=== PATIENT | female | born 1945 | race Caucasian/White ===

== ENCOUNTER 2018-11-16 10:40 | Inpatient (IN) ==
[2018-11-16] MEDS ORDERED: Isovue-370 500 ML BOTTLE IVP ONE (11:05)
[2018-11-16 12:18] LABS: INR 1.2; Prothrombin Time 13.9 Seconds (9.4-12.1)
[2018-11-16 12:22] LABS: Activated Partial Thrombo Time 19.8 Seconds (26.0-36.0)
[2018-11-16 12:28] LABS: Amylase 15 Units/L (29-103); BUN/Creatinine Ratio 15 (6-26); Blood Urea Nitrogen 8 mg/dL (8-23); Carbon Dioxide 30 mEq/L (23-29); Chloride 96 mEq/L (98-107); Glucose 187 mg/dL (70-105); Magnesium 1.7 mg/dL (1.6-2.6); Osmolality,Calculated 283 (280-300); Phosphorous 3.1 mg/dL (2.7-4.5); Potassium 3.5 mEq/L (3.5-5.1); Sodium 135 mEq/L (136-145); eGFR For Non-African Americans > 60 (> 60)
[2018-11-16] MEDS: *HR* Promethazine 25 MG/ML VIAL IVP PRN (13:18)
[2018-11-16] MEDS: 0.9 % Sodium Chloride 1,000 ML IVC SCH (13:18)
[2018-11-16] MEDS: Isovue-370 500 ML BOTTLE RC ONE ×2 (13:44→13:45)
[2018-11-16] MEDS ORDERED: *HR* Dextrose 50 % in Water (Syg) 50 ML SYRINGE IVP PRN (13:50)
[2018-11-16] MEDS ORDERED: Dextrose 4 GM Chewable Tablets PO PRN ×2 (13:50)
[2018-11-16] MEDS ORDERED: Dextrose Gel 15 GM/37.5 ML TUBE PO PRN ×2 (13:50)
[2018-11-16] MEDS ORDERED: D5% in Water 1,000 ML IVC PRN (13:50)
[2018-11-16 14:04] LABS: Basophils % 0.3 %; Eosinophils # 0.2 K/mcL (0.0-0.6); Eosinophils % 1.6 %; Hematocrit 30.1 % (35.3-44.9); Hemoglobin 9.7 g/dL (11.5-15.4); Immature Granulocytes % 0.9 % (0-4); Immature Platelets 2.4 % (1.1-6.1); Lymphocytes # 0.9 K/mcL (0.6-4.6); Lymphocytes % 9.1 %; Mean Corpuscular HGB Conc 32.2 g/dL (31.6-35.5); Mean Corpuscular Volume 89.9 fL (83.0-100.0); Mean Platelet Volume 9.2 fL (9.4-12.4); Monocytes # 0.7 K/mcL (0.0-1.3); Monocytes % 7.2 %; Neutrophils # 8.2 K/mcL (1.6-8.9); Nucleated Red Blood Cells 0.2 /100 WBC (0); Platelet Count 309 K/mcL (140-400); Red Blood Count 3.35 M/mcL (3.82-4.97); Red Cell Distribution Width 12.9 % (11.5-14.5); Segmented Neutrophils % 80.9 %
--- NOTE | 2018-11-16 14:23 | General Surg History&Physical ---
Date of Encounter: 11/16/18 Time of Encounter: 14:20 Assessment and Plan (1) Vomiting Current Visit: Yes Status: Acute The assessment and plan as outlined above was discussed with the patient and/or family members who expressed understanding and agreement. All questions were answered. Pt seen in office today. Reports nausea, vomiting, inability to keep liquids down, and fever. See hard chart for H&P. Admitted for work-up and fluids. Anticipate d/c in 24-48 hours pending clinical course and fluid resuscitation Labs IVF serial abd exam CT with iv and rectal contrast to rule out abscess or surgical complication prn antiemetic gi and dvt prophylaxis npo except ice chips Qualifiers: Vomiting type: unspecified Vomiting Intractability: intractable Nausea presence: with nausea Qualified Code(s): R11.2 - Nausea with vomiting, unspecified (2) Dehydration Current Visit: Yes Status: Acute The assessment and plan as outlined above was discussed with the patient and/or family members who expressed understanding and agreement. All questions were answered. (3) S/P partial colectomy Current Visit: No Status: Acute The assessment and plan as outlined above was discussed with the patient and/or family members who expressed understanding and agreement. All questions were answered. (4) Colovesical fistula Current Visit: No Status: Acute The assessment and plan as outlined above was discussed with the patient and/or family members who expressed understanding and agreement. All questions were answered. Rectosigmoid colectomy 11/09/2018. Per recent hospital admission, was recommended to follow-up in 2-3 weeks for voiding trial and tomlin management. Per [facility] record review, Pt of Dr. Crow. Saw Dr. Tejeda in office today d/t timing and had voiding trial. tomlin removed. will need to closely monitor I/O Check UA (5) Nausea Current Visit: No Status: Acute The assessment and plan as outlined above was discussed with the patient and/or family members who expressed understanding and agreement. All questions were answered. History of Present Illness HPI: Ms. Kim is a 73 year old female Past Med Surg Social Fam HX - Past Medical History Medical history: diabetes, hypertension Additional medical history: h/o Uterine cancer Psychiatric history: anxiety - Past Surgical History Surgical History: appendectomy, cholecystectomy, hysterectomy Additional surgical history: Rt knee surgery - Social History Smoking Status: Never smoker Smokeless Tobacco Status: No Alcohol use: rarely Drug use: none - Family History Father Living Status: Hx Family Cardiac Disorders: Yes Hx Family Cancer: Yes (colon) Medications and Allergies Aspirin 325 mg PO DAILY 11/09/18 [History] Biotin 1 mg PO DAILY 11/09/18 [History] LORazepam [Ativan] 0.5 mg PO TID PRN 11/09/18 [History] Lactobacillus Combination No.8 [Adult Probiotic] 1 tab PO DAILY 11/09/18 [History] Metformin HCl [Fortamet] 500 mg PO BID 11/09/18 [History] Multivit-Min/FA/Lycopen/Lutein [Adults 50+ Multivitamin Tablet] 1 each PO DAILY 11/09/18 [History] [place]-3/Dha/Epa/Fish Oil [[place] 3 500 Softgel] 1 each PO DAILY 11/09/18 [History] Omeprazole [PriLOSEC] 20 mg PO QAM 11/09/18 [History] Simethicone [Gas-X] 80 mg PO ACHS PRN 11/09/18 [History] Cyanocobalamin (Vitamin B-12) [Vitamin B-12] 500 mcg PO QAM 11/12/18 [History] Docusate Sodium [Colace] 100 mg PO BID PRN #30 capsule 11/12/18 [Rx] Enalapril/Hydrochlorothiazide [Enalapril-Hctz 5-12.5 mg Tab] 1 each PO QAM 11/12/18 [History] HYDROcodone/Acet 5/325 mg [[place] 5-325 mg] 1 tab PO Q8H PRN 7 Days #21 tab 11/12/18 [Rx] Ondansetron ODT [Zofran ODT] 4 mg SL Q4HR PRN #30 tab.rapdis 11/12/18 [Rx] Phenazopyridine HCl [Pyridium] 200 mg PO TIDAC PRN #42 tab 11/12/18 [Rx] Allergy/AdvReac Type Severity Reaction Status Date / Time ciprofloxacin Allergy Vomiting Verified 11/12/18 11:58 codeine Allergy Vomiting Verified 11/12/18 11:58 ibuprofen [From Motrin] Allergy Vomiting Verified 11/12/18 11:58 oxycodone [From Percocet] Allergy Vomiting Verified 11/12/18 11:58 penicillin G Allergy Redness of Verified 11/12/18 11:58 Skin Sulfa (Sulfonamide Allergy Vomiting Verified 11/12/18 11:58 Antibiotics) sulfamethoxazole Allergy Vomiting Verified 11/12/18 11:58 [From ] trimethoprim [From ] Allergy Vomiting Verified 11/12/18 11:58 misc throat products Allergy See Uncoded 11/02/18 09:09 Comments Review of Systems All systems PM: The remainder of the systems were reviewed and are negative General Surgery Exam Initial Vital Signs Temp Pulse Resp BP Pulse Ox 98.1 F 94 17 138/72 92 11/16/18 13:40 11/16/18 13:40 11/16/18 13:40 11/16/18 13:40 11/16/18 13:40 Results - Labs 11/16/18 11:25 11/16/18 11:25 Abnormal lab results RBC 3.35 M/mcL (3.82-4.97) L 11/16/18 11:25 Hgb 9.7 g/dL (11.5-15.4) L 11/16/18 11:25 Hct 30.1 % (35.3-44.9) L 11/16/18 11:25 MPV 9.2 fL (9.4-12.4) L 11/16/18 11:25 Nucleated RBCs/100 WBC 0.2 /100 WBC (0) H 11/16/18 11:25 PT 13.9 Seconds (9.4-12.1) H 11/16/18 11:25 APTT 19.8 Seconds (26.0-36.0) L 11/16/18 11:25 Sodium 135 mEq/L (136-145) L 11/16/18 11:25 Chloride 96 mEq/L (98-107) L 11/16/18 11:25 Carbon Dioxide 30 mEq/L (23-29) H 11/16/18 11:25 Creatinine 0.54 mg/dL (0.60-1.20) L 11/16/18 11:25 Glucose 187 mg/dL (70-105) H 11/16/18 11:25 Prealbumin 9.5 mg/dL (17.0-34.0) L 11/16/18 11:25 Amylase 15 Units/L (29-103) L 11/16/18 11:25 Lipase 7 Units/L (11-82) L 11/16/18 11:25 Diabetes panel 11/16/18 Range/Units 11:25 Sodium 135 L (136-145) mEq/L Potassium 3.5 (3.5-5.1) mEq/L Chloride 96 L (98-107) mEq/L Carbon Dioxide 30 H (23-29) mEq/L BUN 8 (8-23) mg/dL Creatinine 0.54 L (0.60-1.20) mg/dL Glucose 187 H (70-105) mg/dL Calcium 9.0 (8.6-10.3) mg/dL Calcium panel 11/16/18 Range/Units 11:25 Calcium 9.0 (8.6-10.3) mg/dL Phosphorus 3.1 (2.7-4.5) mg/dL Pituitary panel 11/16/18 Range/Units 11:25 Sodium 135 L (136-145) mEq/L Potassium 3.5 (3.5-5.1) mEq/L Chloride 96 L (98-107) mEq/L Carbon Dioxide 30 H (23-29) mEq/L BUN 8 (8-23) mg/dL Creatinine 0.54 L (0.60-1.20) mg/dL Glucose 187 H (70-105) mg/dL Calcium 9.0 (8.6-10.3) mg/dL Adrenal panel 11/16/18 Range/Units 11:25 Sodium 135 L (136-145) mEq/L Potassium 3.5 (3.5-5.1) mEq/L Chloride 96 L (98-107) mEq/L Carbon Dioxide 30 H (23-29) mEq/L BUN 8 (8-23) mg/dL Creatinine 0.54 L (0.60-1.20) mg/dL Glucose 187 H (70-105) mg/dL Calcium 9.0 (8.6-10.3) mg/dL All other labs normal.
[2018-11-16] MEDS: Acetaminophen IV 1,000 MG/100 ML INFUS..BTL IVPB SCH ×2 (15:48→17:24)
[2018-11-16] MEDS: Scopolamine Patch 1.5 MG PATCH.TD72 TD SCH (15:49)
[2018-11-16 16:43] LABS: Bilirubin,Urine Negative (Negative); Blood,Urine Large (Negative); Clarity,Urine Clear (Clear); Glucose,Urine (UA) Normal (Normal); Ketones,Urine 80 mg/dL (Negative); Leukocyte Esterase,Urine Moderate (Negative); Nitrite,Urine Positive (Negative); Protein,Urine 100 mg/dL (Neg-Trace); Specific Gravity,Urine > 1.030 (1.010-1.025); Urobilinogen,Urine Normal (Normal)
[2018-11-16 16:45] LABS: Bacteria,Urine Moderate per hpf (None-Few); Hyaline Casts,Urine None Seen per lpf (None-Few); Squamous Epithelial Cell,Urine Moderate per lpf (None-Few); WBC,Urine TNTC per hpf (0-3)
[2018-11-16 16:48] LABS: Color,Urine Dark Yellow (Yellow)
[2018-11-16] MEDS: Piperacillin/Tazobactam 3.375 GM in 0.9 % Sodium Chloride Mini Bag 100 ML IVPB SCH (16:53)
[2018-11-16] MEDS: Insulin LISPRO 300 UNITS/3 ML VIAL SQ SCH (18:26)
[2018-11-17] MEDS: Piperacillin/Tazobactam 3.375 GM in 0.9 % Sodium Chloride Mini Bag 100 ML IVPB SCH ×3 (00:33→16:34)
[2018-11-17] MEDS: *HR* Promethazine 25 MG/ML VIAL IVP PRN ×3 (00:34→18:55)
[2018-11-17] MEDS: Acetaminophen IV 1,000 MG/100 ML INFUS..BTL IVPB SCH ×5 (00:43→23:47)
[2018-11-17] MEDS: Insulin LISPRO 300 UNITS/3 ML VIAL SQ SCH ×4 (04:08→18:58)
[2018-11-17] MEDS: 0.9 % Sodium Chloride 1,000 ML IVC SCH ×4 (05:28→23:47)
[2018-11-17 08:29] LABS: Basophils % 0.2 %; Eosinophils # 0.1 K/mcL (0.0-0.6); Eosinophils % 0.9 %; Hematocrit 28.7 % (35.3-44.9); Hemoglobin 9.4 g/dL (11.5-15.4); Immature Granulocytes % 0.3 % (0-4); Lymphocytes # 0.6 K/mcL (0.6-4.6); Lymphocytes % 4.6 %; Mean Corpuscular HGB Conc 32.8 g/dL (31.6-35.5); Mean Corpuscular Hemoglobin 29.7 pg (28.0-33.3); Mean Corpuscular Volume 90.5 fL (83.0-100.0); Mean Platelet Volume 9.1 fL (9.4-12.4); Monocytes # 0.5 K/mcL (0.0-1.3); Monocytes % 3.9 %; Neutrophils # 11.2 K/mcL (1.6-8.9); Nucleated Red Blood Cells 0.2 /100 WBC (0); Platelet Count 227 K/mcL (140-400); Red Blood Count 3.17 M/mcL (3.82-4.97); Red Cell Distribution Width 12.9 % (11.5-14.5); Segmented Neutrophils % 90.1 %
[2018-11-17] MEDS: Pantoprazole 40 MG VIAL IVP SCH (08:45)
[2018-11-17 08:48] LABS: BUN/Creatinine Ratio 18 (6-26); Blood Urea Nitrogen 10 mg/dL (8-23); Calcium 8.3 mg/dL (8.6-10.3); Carbon Dioxide 28 mEq/L (23-29); Chloride 99 mEq/L (98-107); Glucose 154 mg/dL (70-105); Osmolality,Calculated 282 (280-300); Potassium 3.5 mEq/L (3.5-5.1); Sodium 135 mEq/L (136-145); eGFR For Non-African Americans > 60 (> 60)
--- NOTE | 2018-11-17 12:50 | General Surgery Progress Note ---
<Rukhsana Zavaleta - Last Filed: 11/17/18 17:19> Date of Encounter: 11/17/18 Time of Encounter: 08:20 - Assessment and Plan (1) Vomiting Current Visit: Yes Status: Acute Pt seen in office yesterday. Reported nausea, vomiting, inability to keep liquids down, and fever. Admitted for work-up and fluids. CT abd/pelvis shows postop changes. There is <1cm fluid collection in left pelvis, too small to drain. UA shows UTI. C. diff order waiting on bowel movement. No bowel movement today. Continue IV abx. IVF serial abd exam prn antiemetic gi and dvt prophylaxis npo except ice chips and sips Qualifiers: Vomiting type: unspecified Vomiting Intractability: intractable Nausea presence: with nausea Qualified Code(s): R11.2 - Nausea with vomiting, unspecified (2) Dehydration Current Visit: Yes Status: Acute IVF hydration (3) S/P partial colectomy Current Visit: No Status: Acute Status post partial colectomy on 11/09/18. (4) Colovesical fistula Current Visit: No Status: Acute Rectosigmoid colectomy with colocvesical fistula repair 11/09/2018. Per recent hospital admission, was recommended to follow-up in 2-3 weeks for voiding trial and tomlin management. Per [facility] record review, Pt of Dr. Crow. Saw Dr. Tejeda in office today d/t timing and had voiding trial. tomlin removed. will need to closely monitor I/O UA shows UTI. Continue IV abx. Subjective Narrative: Patient seen and examined. No acute events overnight. Patient states shes having abdominal pain and nausea. States it started before her recent discharge. Pain is unchanged. Nausea is a little better after medicine. No emesis. Reports diarrhea at home, no blood. No bowel movement today. Objective Vital Signs - Last 8 Hours Temp Pulse Resp BP Pulse Ox 11/17/18 11:31 101.0 F H 100 16 151/69 91 11/17/18 07:00 99.8 F H 98 18 147/72 93 Intake and Output 11/16/18 11/17/18 11/17/18 23:59 07:59 15:59 Intake Total 1200 / 1200 250 / 250 1000 / 1000 Output Total 450 / 450 Balance 750 / 750 250 / 250 1000 / 1000 Intake: IV Fluids 1200 / 1200 200 / 200 1000 / 1000 0.9 % Sodium Chloride 1,000 ML 1000 / 1000 1000 / 1000 @ 100 mls/hr IVC .Q10H GEO Rx#: [id number] Ofirmev 1,000 mg/100 ml 1,000 100 / 100 100 / 100 mg In 100 ml @ 400 mls/hr IVPB Q6HR [facility]O Rx#:[id number] Zosyn 3.375 GM In 0.9 % Sodium 100 / 100 100 / 100 Chloride (Mini-Bag +) 100 ML @ 25 mls/hr IVPB Q8HR [facility] Rx#: [id number] Oral 50 / 50 Output: Urine 450 / 450 Other: Weight 70 kg Patient Weight 11/17/18 23:59 Weight 70 kg - Additional Exam VITAL SIGNS: Reviewed. See [facility] GENERAL: In no apparent distress. HEENT: Normocephalic, atraumatic, pupils are equal and reactive, extraocular motions intact, oral mucosa pink and moist. CHEST/RESPIRATORY: The thorax is free from signs of trauma. Lung sounds: clear to auscultation, normal respiratory effort CARDIAC: Regular rate and rhythm. Normal S1 and S2, without murmur, gallops, or rubs. VASCULAR: No Edema. ABDOMEN: Soft. Obese. Nondistended. Diffuse tender to palpation. Bowel sounds present. INCISION: Incision sites are clean, dry, and intact. There is no sign of cellulitis or infection. MUSCULOSKELETAL: Good range of motion of all major joints. Extremities without clubbing, cyanosis or edema. NEUROLOGIC EXAM: Alert and oriented x 3. Speech normal. Follows commands. PSYCHIATRIC: Mood normal. SKIN: No rash or lesions. - Labs 11/17/18 08:10 11/17/18 08:10 Diabetes panel 11/17/18 Range/Units 08:10 Sodium 135 L (136-145) mEq/L Potassium 3.5 (3.5-5.1) mEq/L Chloride 99 (98-107) mEq/L Carbon Dioxide 28 (23-29) mEq/L BUN 10 (8-23) mg/dL Creatinine 0.55 L (0.60-1.20) mg/dL Glucose 154 H (70-105) mg/dL Calcium 8.3 L (8.6-10.3) mg/dL Calcium panel 11/17/18 Range/Units 08:10 Calcium 8.3 L (8.6-10.3) mg/dL Pituitary panel 11/17/18 Range/Units 08:10 Sodium 135 L (136-145) mEq/L Potassium 3.5 (3.5-5.1) mEq/L Chloride 99 (98-107) mEq/L Carbon Dioxide 28 (23-29) mEq/L BUN 10 (8-23) mg/dL Creatinine 0.55 L (0.60-1.20) mg/dL Glucose 154 H (70-105) mg/dL Calcium 8.3 L (8.6-10.3) mg/dL Adrenal panel 11/17/18 Range/Units 08:10 Sodium 135 L (136-145) mEq/L Potassium 3.5 (3.5-5.1) mEq/L Chloride 99 (98-107) mEq/L Carbon Dioxide 28 (23-29) mEq/L BUN 10 (8-23) mg/dL Creatinine 0.55 L (0.60-1.20) mg/dL Glucose 154 H (70-105) mg/dL Calcium 8.3 L (8.6-10.3) mg/dL Consult Discharge Plan - Plan Referrals: Omid Luther MD [Primary Care Provider] - <Napoleon Chew M - Last Filed: 11/17/18 18:10> Date of Encounter: 11/17/18 Objective Vital Signs - Last 8 Hours Temp Pulse Resp BP Pulse Ox 11/17/18 16:11 100.1 F H 99 18 151/71 93 11/17/18 11:31 101.0 F H 100 16 151/69 91 Intake and Output 11/17/18 11/17/18 11/17/18 07:59 15:59 23:59 Intake Total 350 / 350 1200 / 1200 Output Total 100 / 100 Balance 350 / 350 1100 / 1100 Intake: IV Fluids 300 / 300 1200 / 1200 0.9 % Sodium Chloride 1,000 ML 1000 / 1000 @ 100 mls/hr IVC .Q10H GEO Rx#: [id number] Ofirmev 1,000 mg/100 ml 1,000 200 / 200 100 / 100 mg In 100 ml @ 400 mls/hr IVPB Q6HR GEO Rx#:[id number] Zosyn 3.375 GM In 0.9 % Sodium 100 / 100 100 / 100 Chloride (Mini-Bag +) 100 ML @ 25 mls/hr IVPB Q8HR [facility] Rx#: [id number] Oral 50 / 50 Output: Urine 100 / 100 Other: Weight 70 kg Blood Glucose* 129 Patient Weight 11/17/18 23:59 Weight 70 kg - Labs 11/17/18 08:10 11/17/18 08:10 Diabetes panel 11/17/18 Range/Units 08:10 Sodium 135 L (136-145) mEq/L Potassium 3.5 (3.5-5.1) mEq/L Chloride 99 (98-107) mEq/L Carbon Dioxide 28 (23-29) mEq/L BUN 10 (8-23) mg/dL Creatinine 0.55 L (0.60-1.20) mg/dL Glucose 154 H (70-105) mg/dL Calcium 8.3 L (8.6-10.3) mg/dL Calcium panel 11/17/18 Range/Units 08:10 Calcium 8.3 L (8.6-10.3) mg/dL Pituitary panel 11/17/18 Range/Units 08:10 Sodium 135 L (136-145) mEq/L Potassium 3.5 (3.5-5.1) mEq/L Chloride 99 (98-107) mEq/L Carbon Dioxide 28 (23-29) mEq/L BUN 10 (8-23) mg/dL Creatinine 0.55 L (0.60-1.20) mg/dL Glucose 154 H (70-105) mg/dL Calcium 8.3 L (8.6-10.3) mg/dL Adrenal panel 11/17/18 Range/Units 08:10 Sodium 135 L (136-145) mEq/L Potassium 3.5 (3.5-5.1) mEq/L Chloride 99 (98-107) mEq/L Carbon Dioxide 28 (23-29) mEq/L BUN 10 (8-23) mg/dL Creatinine 0.55 L (0.60-1.20) mg/dL Glucose 154 H (70-105) mg/dL Calcium 8.3 L (8.6-10.3) mg/dL - Attending Attestation I examined this patient and my medical decision-making was reviewed with the Resident Physician. I agree with the documented findings, disposition and treatment plan as described except to the extent set forth below. I reviewed the above assessment and evaluation and agree with the above plan. I explained to the patient that given her continued nausea at this time and some abdominal pain I would hold off on advancing her diet from sips of clears. If she is still unable to tolerate a by mouth diet or I am unsure whether or not she is able to be advanced further by Monday then will likely require a PICC line for TPN. Await return of bowel function and improvement in pain symptoms. Further try to address questions about her pelvic pain and explained that given the history of radiation therapy to the pelvis and her surgery for colovesicular fistula I do think that the symptoms that she is currently having are within the realm of normal given the extent of the surgical procedure. We will continue to observe and see how much medication she requires for her nausea. She does have some tympany but has bowel sounds.
[2018-11-17] MEDS: *HR* Heparin 5,000 UNIT/ML VIAL SQ SCH (18:47)
[2018-11-17] MEDS ORDERED: Piperacillin/Tazobactam 3.375 GM VIAL ONE (23:56)
[2018-11-18] MEDS: Piperacillin/Tazobactam 3.375 GM in 0.9 % Sodium Chloride Mini Bag 100 ML IVPB SCH ×3 (00:15→18:53)
[2018-11-18] MEDS: *HR* Promethazine 25 MG/ML VIAL IVP PRN ×2 (00:35→05:48)
[2018-11-18] MEDS: Insulin LISPRO 300 UNITS/3 ML VIAL SQ SCH ×4 (03:30→18:54)
[2018-11-18] MEDS: Ondansetron 4 MG/2 ML VIAL IVP PRN ×2 (03:38→20:18)
[2018-11-18] MEDS: *HR* Heparin 5,000 UNIT/ML VIAL SQ SCH (05:47)
[2018-11-18] MEDS: Acetaminophen IV 1,000 MG/100 ML INFUS..BTL IVPB SCH ×3 (05:48→18:52)
[2018-11-18 09:10] LABS: Basophils % 0.2 %; Eosinophils # 0.1 K/mcL (0.0-0.6); Hematocrit 26.9 % (35.3-44.9); Hemoglobin 8.5 g/dL (11.5-15.4); Immature Granulocytes % 0.8 % (0-4); Lymphocytes # 0.5 K/mcL (0.6-4.6); Lymphocytes % 4.2 %; Mean Corpuscular HGB Conc 31.6 g/dL (31.6-35.5); Mean Corpuscular Hemoglobin 29.1 pg (28.0-33.3); Mean Corpuscular Volume 92.1 fL (83.0-100.0); Monocytes # 0.3 K/mcL (0.0-1.3); Neutrophils # 9.6 K/mcL (1.6-8.9); Platelet Count 249 K/mcL (140-400); Red Blood Count 2.92 M/mcL (3.82-4.97); Red Cell Distribution Width 12.9 % (11.5-14.5); Segmented Neutrophils % 90.8 %
[2018-11-18 09:22] LABS: BUN/Creatinine Ratio 25 (6-26); Blood Urea Nitrogen 13 mg/dL (8-23); Calcium 8.2 mg/dL (8.6-10.3); Carbon Dioxide 26 mEq/L (23-29); Chloride 103 mEq/L (98-107); Glucose 115 mg/dL (70-105); Osmolality,Calculated 283 (280-300); Potassium 3.2 mEq/L (3.5-5.1); Sodium 136 mEq/L (136-145); eGFR For Non-African Americans > 60 (> 60)
[2018-11-18] MEDS: Pantoprazole 40 MG VIAL IVP SCH (09:30)
--- NOTE | 2018-11-18 11:05 | General Surgery Progress Note ---
<Rukhsana Zavaleta - Last Filed: 11/18/18 17:10> Date of Encounter: 11/18/18 Time of Encounter: 07:35 - Assessment and Plan (1) Vomiting Current Visit: Yes Status: Acute Pt seen in office on 11/16/18. Reported nausea, vomiting, inability to keep liquids down, and fever. Admitted for work-up and fluids. CT abd/pelvis shows postop changes. There is <1cm fluid collection in left pelvis, too small to drain. UA shows UTI. C. diff order waiting on bowel movement. Continue IV abx. IVF serial abd exam prn antiemetic gi and dvt prophylaxis npo except ice chips and sips Check LFT for nutrition status Plan for PICC tomorrow Qualifiers: Vomiting type: unspecified Vomiting Intractability: intractable Nausea presence: with nausea Qualified Code(s): R11.2 - Nausea with vomiting, unspecified (2) Chest pressure Current Visit: Yes Status: Acute Patient complained of chest pressure. Went away after vomiting. EKG shows small ST segment depression. New from prior EKG 11/02/18. Trend troponin. Check CXR Cardiology consulted. Spoke with Dr. Tubbs who instructed to start heparin drip if troponin is elevated. (3) Dehydration Current Visit: Yes Status: Acute IVF hydration (4) S/P partial colectomy Current Visit: No Status: Acute Status post partial colectomy on 11/09/18. (5) Colovesical fistula Current Visit: No Status: Acute Rectosigmoid colectomy with colocvesical fistula repair 11/09/2018. Per recent hospital admission, was recommended to follow-up in 2-3 weeks for voiding trial and tomlin management. Per [facility] record review, Pt of Dr. Crow. Saw Dr. Tejeda in office today d/t timing and had voiding trial. tomlin removed. will need to closely monitor I/O UA shows UTI. Continue IV abx. Subjective Narrative: Patient seen and examined. No acute events overnight. Had a fever of 101.0 yesterday afternoon but afebrile since. Patient states shes having abdominal pain and nausea. States she thinks shes feeling a little worse today. Reports abdominal pain at epigastrium. States she feels gassy. She is belching and passing gas. Had a bowel movement today, no blood. Nausea is a little better after medicine. No emesis. Nurse reported that patient complaining of chest pressure and right back pain, new. No CP, SOB, numbness/tingling. Nausea unchanged. Patient states she thinks it was gas. She vomited and chest pressure went away. Now she feels better. States back pain is from laying in bed too long. Objective Vital Signs - Last 8 Hours Temp Pulse Resp BP Pulse Ox 11/18/18 08:41 99.3 F 92 20 144/77 91 Intake and Output 11/17/18 11/18/18 11/18/18 22:59 07:59 15:59 Intake Total Balance Intake: IV Fluids 0.9 % Sodium Chloride 1,000 ML @ 100 mls/hr IVC .Q10H [facility] Rx#: [id number] Ofirmev 1,000 mg/100 ml 1,000 mg In 100 ml @ 400 mls/hr IVPB Q6HR [facility] Rx#:[id number] Zosyn 3.375 GM In 0.9 % Sodium Chloride (Mini-Bag +) 100 ML @ 25 mls/hr IVPB Q8HR [facility]O Rx#: [id number] Other: Stool Consistency # Voids # Bowel Movements Weight Blood Glucose* Patient Weight 11/19/18 00:59 Weight 66 kg - Additional Exam VITAL SIGNS: Reviewed. See [facility] GENERAL: In no apparent distress. HEENT: Normocephalic, atraumatic, pupils are equal and reactive, extraocular motions intact, oral mucosa pink and moist. CHEST/RESPIRATORY: The thorax is free from signs of trauma. Lung sounds: clear to auscultation, normal respiratory effort CARDIAC: Regular rate and rhythm. Normal S1 and S2, without murmur, gallops, or rubs. VASCULAR: No Edema. ABDOMEN: Soft. Obese. Nondistended. Diffusely tender to palpation, most at RUQ. Quiet bowel sounds. INCISION: Incision sites are clean, dry, and intact. There is no sign of cellulitis or infection. MUSCULOSKELETAL: Good range of motion of all major joints. Extremities without clubbing, cyanosis or edema. NEUROLOGIC EXAM: Alert and oriented x 3. Speech normal. Follows commands. PSYCHIATRIC: Mood depressed. SKIN: No rash or lesions. - Labs 11/18/18 08:52 11/18/18 08:52 Diabetes panel 11/18/18 Range/Units 08:52 Sodium 136 (136-145) mEq/L Potassium 3.2 L (3.5-5.1) mEq/L Chloride 103 (98-107) mEq/L Carbon Dioxide 26 (23-29) mEq/L BUN 13 (8-23) mg/dL Creatinine 0.51 L (0.60-1.20) mg/dL Glucose 115 H (70-105) mg/dL Calcium 8.2 L (8.6-10.3) mg/dL Calcium panel 11/18/18 Range/Units 08:52 Calcium 8.2 L (8.6-10.3) mg/dL Pituitary panel 11/18/18 Range/Units 08:52 Sodium 136 (136-145) mEq/L Potassium 3.2 L (3.5-5.1) mEq/L Chloride 103 (98-107) mEq/L Carbon Dioxide 26 (23-29) mEq/L BUN 13 (8-23) mg/dL Creatinine 0.51 L (0.60-1.20) mg/dL Glucose 115 H (70-105) mg/dL Calcium 8.2 L (8.6-10.3) mg/dL Adrenal panel 11/18/18 Range/Units 08:52 Sodium 136 (136-145) mEq/L Potassium 3.2 L (3.5-5.1) mEq/L Chloride 103 (98-107) mEq/L Carbon Dioxide 26 (23-29) mEq/L BUN 13 (8-23) mg/dL Creatinine 0.51 L (0.60-1.20) mg/dL Glucose 115 H (70-105) mg/dL Calcium 8.2 L (8.6-10.3) mg/dL Consult Discharge Plan - Plan Referrals: Omid Luther MD [Primary Care Provider] - <Napoleon Chew - Last Filed: 11/19/18 06:40> Date of Encounter: 11/18/18 Objective Vital Signs - Last 8 Hours Temp Pulse Resp BP Pulse Ox 11/19/18 04:29 99.4 F 91 14 155/78 95 11/19/18 00:09 98.3 F 86 18 133/74 96 Intake and Output 11/18/18 11/18/18 11/19/18 15:59 23:59 07:59 Intake Total 1200 / 1200 210 / 210 / Balance 1200 / 1200 210 / 210 / Intake: IV Fluids 1200 / 1200 / 210 / 0.9 % Sodium Chloride 1,000 ML 1000 / 1000 @ 100 mls/hr IVC .Q10H [facility] Rx#: [id number] Heparin 25,000 UNIT/250 ML D5W / 25,000 unit In 250 ml @ 12 UNIT /KG/HR 7.92 mls/hr IVC .Q24H [facility]O Rx#:[id number] Ofirmev 1,000 mg/100 ml 1,000 100 / 100 mg In 100 ml @ 400 mls/hr IVPB Q6HR [facility] Rx#:[id number] Zosyn 3.375 GM In 0.9 % Sodium 200 / 200 Chloride (Mini-Bag +) 100 ML @ 25 mls/hr IVPB Q8HR [facility] Rx#: [id number] Potassium Chloride 10 mEq/100mL 100 / 100 10 / 10 10 meq In 100 ml @ 100 mls/hr IVPB Q1H [facility] Rx#:[id number] Other: Blood Glucose* 127 112 - Labs 11/18/18 08:52 11/18/18 08:52 Diabetes panel 11/18/18 Range/Units 08:52 Sodium 136 (136-145) mEq/L Potassium 3.2 L (3.5-5.1) mEq/L Chloride 103 (98-107) mEq/L Carbon Dioxide 26 (23-29) mEq/L BUN 13 (8-23) mg/dL Creatinine 0.51 L (0.60-1.20) mg/dL Glucose 115 H (70-105) mg/dL Calcium 8.2 L (8.6-10.3) mg/dL Calcium panel 11/18/18 Range/Units 08:52 Calcium 8.2 L (8.6-10.3) mg/dL Pituitary panel 11/18/18 Range/Units 08:52 Sodium 136 (136-145) mEq/L Potassium 3.2 L (3.5-5.1) mEq/L Chloride 103 (98-107) mEq/L Carbon Dioxide 26 (23-29) mEq/L BUN 13 (8-23) mg/dL Creatinine 0.51 L (0.60-1.20) mg/dL Glucose 115 H (70-105) mg/dL Calcium 8.2 L (8.6-10.3) mg/dL Adrenal panel 11/18/18 Range/Units 08:52 Sodium 136 (136-145) mEq/L Potassium 3.2 L (3.5-5.1) mEq/L Chloride 103 (98-107) mEq/L Carbon Dioxide 26 (23-29) mEq/L BUN 13 (8-23) mg/dL Creatinine 0.51 L (0.60-1.20) mg/dL Glucose 115 H (70-105) mg/dL Calcium 8.2 L (8.6-10.3) mg/dL - Attending Attestation I examined this patient and my medical decision-making was reviewed with the Resident Physician. I agree with the documented findings, disposition and treatment plan as described except to the extent set forth below. Review the above assessment and evaluation and agree with the above plan. Patient still with some nausea and no progression/improvement and by mouth diet. No bowel movements. Noted lower abdominal pain. Ms. that she did have an episode of nausea vomiting earlier today. Will discuss with Dr. Walker; recommends PICC line and nutrition consult for TPN. Addendum: Patient admitted to the resident that she was experiencing some chest pressure. EKG ordered which showed some ST depression. Troponins were drawn which were elevated. Cardiology consulted and patient has been started on a heparin drip.
[2018-11-18] MEDS ORDERED: Heparin 25,000 UNIT/250 ML D5W 25,000 UNIT/250 ML IV.SOLN IVC SCH (16:45)
[2018-11-18] MEDS ORDERED: *HR* Heparin 5,000 UNIT/ML VIAL IVP PRN ×2 (16:45)
[2018-11-18] MEDS ORDERED: *HR* Heparin 5,000 UNIT/ML VIAL IVP ONE (16:45)
[2018-11-18 17:54] LABS: INR 1.5; Prothrombin Time 17.2 Seconds (9.4-12.1)
[2018-11-19] MEDS: Piperacillin/Tazobactam 3.375 GM in 0.9 % Sodium Chloride Mini Bag 100 ML IVPB SCH ×3 (01:03→17:09)
[2018-11-19] MEDS: Insulin LISPRO 300 UNITS/3 ML VIAL SQ SCH ×5 (02:42→21:25)
[2018-11-19] MEDS: 0.9 % Sodium Chloride 1,000 ML IVC SCH ×4 (03:06→13:17)
[2018-11-19] MEDS: *HR* Promethazine 25 MG/ML VIAL IVP PRN (05:17)
[2018-11-19 07:14] LABS: BUN/Creatinine Ratio 29 (6-26); Blood Urea Nitrogen 13 mg/dL (8-23); Calcium 7.8 mg/dL (8.6-10.3); Carbon Dioxide 20 mEq/L (23-29); Chloride 104 mEq/L (98-107); Glucose 113 mg/dL (70-105); Osmolality,Calculated 281 (280-300); Potassium 3.6 mEq/L (3.5-5.1); Sodium 135 mEq/L (136-145); Troponin I 0.72 ng/mL (< 0.04); eGFR For Non-African Americans > 60 (> 60)
--- NOTE | 2018-11-19 08:06 | Cardiology Consult Note ---
Date of Encounter: 11/19/18 Time of Encounter: 08:06 Assessment and Plan (1) Elevated troponin Current Visit: Yes Status: Acute 73 year old diabetic female with recent rectosigmoid colectomy on 11/09/18 developed chest pressure yesterday which improved after vomiting. Labs revealed elevated troponin levels 0.36 --> 0.86 --> 0.72 in the setting of dehydration EKG showed new mild ST depressions in leads I, II, and aVL Patient was started on heparin drip. Echo pending. Patient reports negative cardiac work up during overnight admission at [facility] about 2 years ago. Awaiting medical records. (2) Dehydration Current Visit: Yes Status: Acute Management per primary team. (3) Essential hypertension Current Visit: Yes Status: Chronic Blood pressure elevated. Home Enalapril/ HCTZ was held due to dehydration. (4) S/P partial colectomy Current Visit: No Status: Acute Management per primary team. 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 (6) DM type 2 (diabetes mellitus, type 2) Current Visit: Yes Status: Chronic Management per primary team. 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 All questions were answered. Thank you for involving us in the care of your patient. Please call with any questions. History of Present Illness Consult date: 11/18/18 Requesting physician: Rukhsana Zavaleta Consult reason: Chest pressure. New ST depression Chief complaint: Vomiting History of present illness: Ms. Kim is a 73 year old female with a past medical history of hypertension, diabetes mellitus type 2, colovesicular fistula status post radiation therapy to the pelvis for uterine cancer, and rectosigmoid colectomy on 11/09/18 who presented 3 days ago complaining of nausea, vomiting, and fever. Patient was started on antiemetics and empiric antibiotics for a < 1 cm fluid collection in the left pelvis. Patient reported chronic intermittent "gas pain" epigastric chest pressure yesterday which improved after vomiting. Labs revealed troponin elevation. EKG showed new ST depressions and patient was started on heparin drip. CT abdomen revealed moderate pericardial effusion and small bilateral pleural effusions, left side greater than right, with associated atelectasis in the lung bases. Cardiology was consulted for further evaluation. Past Med Surg Social Fam HX - Past Medical History Medical history: diabetes, hypertension Additional medical history: h/o Uterine cancer Psychiatric history: anxiety - Past Surgical History Surgical History: appendectomy, cholecystectomy, hysterectomy Additional surgical history: Rt knee surgery - Social History Smoking Status: Never smoker Smokeless Tobacco Status: No Alcohol use: rarely Drug use: none - Family History Father Living Status: Hx Family Cardiac Disorders: Yes (CABG at 52yo) Hx Family Cancer: Yes (colon) Mother Age: 91 Living Status: Still Living Brother Hx Family Cardiac Disorders: Yes (CABG at 65yo) Medications and Allergies Aspirin 325 mg PO DAILY 11/09/18 [History] LORazepam [Ativan] 0.5 mg PO TID PRN 11/09/18 [History] Metformin HCl [Fortamet] 500 mg PO BIDWM 11/09/18 [History] Multivit-Min/FA/Lycopen/Lutein [Adults 50+ Multivitamin Tablet] 1 each PO DAILY 11/09/18 [History] [place]-3/Dha/Epa/Fish Oil [[place] 3 500 Softgel] 1 each PO DAILY 11/09/18 [History] Omeprazole [PriLOSEC] 20 mg PO QAM PRN 11/09/18 [History] Simethicone [Gas-X] 80 mg PO ACHS PRN 11/09/18 [History] Cyanocobalamin (Vitamin B-12) [Vitamin B-12] 500 mcg PO QAM 11/12/18 [History] Docusate Sodium [Colace] 100 mg PO BID PRN #30 capsule 11/12/18 [Rx] Enalapril/Hydrochlorothiazide [Enalapril-Hctz 5-12.5 mg Tab] 1 each PO QAM 11/12/18 [History] Ondansetron ODT [Zofran ODT] 4 mg SL Q4HR PRN #30 tab.rapdis 11/12/18 [Rx] Phenazopyridine HCl [Pyridium] 200 mg PO TIDAC PRN #42 tab 11/12/18 [Rx] Allergy/AdvReac Type Severity Reaction Status Date / Time penicillin G Allergy Redness of Verified 11/17/18 11:11 Skin ciprofloxacin AdvReac Vomiting Verified 11/19/18 08:24 codeine AdvReac Vomiting Verified 11/19/18 08:24 ibuprofen [From Motrin] AdvReac Vomiting Verified 11/19/18 08:24 oxycodone [From Percocet] AdvReac Vomiting Verified 11/19/18 08:24 Sulfa (Sulfonamide AdvReac Vomiting Verified 11/19/18 08:24 Antibiotics) sulfamethoxazole AdvReac Vomiting Verified 11/19/18 08:24 [From Septra] trimethoprim [From Septra] AdvReac Vomiting Verified 11/19/18 08:24 misc throat products Allergy See Uncoded 11/17/18 11:11 Comments All Systems Review: The remainder of the systems were reviewed and are negative - Constitutional Constitutional: fever(s), weakness, no chills - Cardiovascular Cardiovascular: chest pain at rest, no dyspnea at rest - Respiratory Respiratory: no cough, no wheezing - Gastrointestinal Gastrointestinal: abdominal pain, nausea (vomiting) - Genitourinary Genitourinary: dysuria, nocturia - Musculoskeletal Musculoskeletal: myalgias - Integumentary Integumentary: no erythema, no rash - Neurological Neurological: no dizziness, no focal weakness, no numbness, no tingling - Psychiatric Psychiatric: no anxiety, no depression Physical Examination Vital Signs, Last 4 Hours Temp Pulse Resp BP Pulse Ox 11/19/18 04:29 99.4 F 91 14 155/78 95 General: Conversant, Other (mild distress) HEENT: Atraumatic, Normocephaly, Other (mucous membranes dry) Neck: No JVD, Normal carotid pulses Cardiac: Reg Rate and Rhythm (tachycardia), Normal S1 and S2 Lungs: Normal Breath Sounds, No Wheeze, Rales, Rhonchi Neuro: Alert and responsive, No focal deficits noted Abdomen: Soft, Non-Tender Skin: No rashes noted on visualized skin Musculoskeletal: No Chest Wall Tenderness Extremities: No Clubbing, No Cyanosis, Other (1+ pedal edema) Results 11/19/18 08:03 11/19/18 06:22 Lab Results 11/18/18 11/18/18 11/18/18 08:52 08:52 15:23 WBC 10.6 Hgb 8.5 L Hct 26.9 L Plt Count 249 INR Sodium 136 Potassium 3.2 L Chloride 103 Carbon Dioxide 26 BUN 13 Creatinine 0.51 L Glucose 115 H Calcium 8.2 L Troponin I 0.36 H* 11/18/18 11/18/18 11/19/18 17:01 22:24 06:22 WBC Hgb Hct Plt Count INR 1.5 Sodium 135 L Potassium 3.6 Chloride 104 Carbon Dioxide 20 L BUN 13 Creatinine 0.45 L Glucose 113 H Calcium 7.8 L Troponin I 0.86 H* 0.72 H* - EKG Interpretation EKG results cardiology: personally reviewed, sinus rhythm (sinus tachycardia with mild ST depressions in leads I, II, and aVL) Consult Discharge Plan - Plan Referrals: Omid Luther MD [Primary Care Provider] -
[2018-11-19] MEDS ORDERED: Ketorolac 15 MG/ML VIAL IVP ONE (08:22)
[2018-11-19] MEDS: Pantoprazole 40 MG VIAL IVP SCH (08:34)
[2018-11-19] MEDS ORDERED: Lidocaine -MPF 1% 5 ML AMPUL INFILT ONE (08:58)
[2018-11-19 09:05] LABS: Basophils % 0.3 %; Eosinophils # 0.1 K/mcL (0.0-0.6); Eosinophils % 0.9 %; Hemoglobin 8.7 g/dL (11.5-15.4); Lymphocytes # 0.6 K/mcL (0.6-4.6); Lymphocytes % 5.4 %; Mean Corpuscular HGB Conc 31.1 g/dL (31.6-35.5); Mean Corpuscular Volume 93.3 fL (83.0-100.0); Mean Platelet Volume 9.1 fL (9.4-12.4); Monocytes # 0.5 K/mcL (0.0-1.3); Monocytes % 4.9 %; Platelet Count 288 K/mcL (140-400); Red Cell Distribution Width 13.2 % (11.5-14.5); Segmented Neutrophils % 87.5 %
--- NOTE | 2018-11-19 09:14 | General Surgery Progress Note ---
Date of Encounter: 11/19/18 Time of Encounter: 09:06 - Assessment and Plan (1) Vomiting Current Visit: Yes Status: Acute Nausea remains after bowel rest. She reports nausea at baseline for the last several years. She does not feel nausea right now is any worse (although she has been NPO). Will repeat CT to rule out anastomotic leak Qualifiers: Vomiting type: unspecified Vomiting Intractability: intractable Nausea presence: with nausea Qualified Code(s): R11.2 - Nausea with vomiting, unspecified (2) Dehydration Current Visit: Yes Status: Acute CONTINUE IVF Strict I&O (noted poor documentation of output. Unclear if the patient is not having output or if it is poor documentation). Reviewed with bedside RN, need for accurate I&O. Pre and postvoid bladder scan (3) S/P partial colectomy Current Visit: No Status: Acute (4) Colovesical fistula Current Visit: Yes Status: Acute s/p repair 11/09/2018 Tomlin removed 11/15/2018 (5) Nausea Current Visit: Yes Status: Acute continue antiemetics (6) UTI (urinary tract infection) Current Visit: Yes Status: Acute culture noted ecoli susceptible to Zosyn Continue IV zosyn Bladder scan as above if acute urinary retention, will consult urology for possible tomlin placement Qualifiers: Urinary tract infection type: site unspecified Hematuria presence: without hematuria Qualified Code(s): N39.0 - Urinary tract infection, site not specified (7) Chest pressure Current Visit: Yes Status: Acute management per cardiology (8) Generalized weakness Current Visit: Yes Status: Acute pt does not feel she can function at home consult PT/OT and SW for placement (9) Severe protein-calorie malnutrition Current Visit: Yes Status: Acute PICC and TPN until able to transition to po Subjective Patient reports: no new complaints, still having pain, pain is less, flatus, no bowel movement, nausea, afebrile, other (States she feels generally week. Reports continued nausea that is near her baseline now. Reports low back and hip pain) Objective Vital Signs - Last 8 Hours Temp Pulse Resp BP Pulse Ox 11/19/18 08:22 99.6 F 99 16 149/73 92 11/19/18 04:29 99.4 F 91 14 155/78 95 Intake and Output 11/18/18 11/19/18 11/19/18 23:59 07:59 15:59 Intake Total 920 / 920 Balance 920 / 920 Intake: IV Fluids 920 / 920 0.9 % Sodium Chloride 1,000 ML 530 / 530 @ 100 mls/hr IVC .Q10H [facility] Rx#: [id number] Heparin 25,000 UNIT/250 ML D5W 25,000 unit In 250 ml @ 12 UNIT /KG/HR 7.92 mls/hr IVC .Q24H [facility] Rx#:[id number] Zosyn 3.375 GM In 0.9 % Sodium 200 / 200 100 / 100 Chloride (Mini-Bag +) 100 ML @ 25 mls/hr IVPB Q8HR [facility] Rx#: [id number] Potassium Chloride 10 mEq/100mL 10 / 10 90 / 90 10 meq In 100 ml @ 100 mls/hr IVPB Q1H [facility] Rx#:[id number] Other: Blood Glucose* 127 112 - General physical appearance no distress, other (ill appearing) - Eyes normal ocular movement - ENT normal nares, normal mucosa - Neck Neck exam: trachea midline - Respiratory normal expansion, clear to auscultation - Cardiovascular Cardiovascular exam: Present: RRR, murmurs - Abdomen Abdomen: Present: bowel sounds present, soft, non tender Hernia: none - Integumentary no rash - Neurologic normal sensation - Musculoskeletal normal posture, other (genralized deconditioning) - Psychiatric oriented to time, oriented to person, oriented to place, speech is normal, memory intact - Labs 11/19/18 08:03 11/19/18 06:22 Diabetes panel 11/18/18 11/19/18 Range/Units 08:52 06:22 Sodium 136 135 L (136-145) mEq/L Potassium 3.2 L 3.6 (3.5-5.1) mEq/L Chloride 103 104 (98-107) mEq/L Carbon Dioxide 26 20 L (23-29) mEq/L BUN 13 13 (8-23) mg/dL Creatinine 0.51 L 0.45 L (0.60-1.20) mg/dL Glucose 115 H 113 H (70-105) mg/dL Calcium 8.2 L 7.8 L (8.6-10.3) mg/dL Calcium panel 11/18/18 11/19/18 Range/Units 08:52 06:22 Calcium 8.2 L 7.8 L (8.6-10.3) mg/dL Pituitary panel 11/18/18 11/19/18 Range/Units 08:52 06:22 Sodium 136 135 L (136-145) mEq/L Potassium 3.2 L 3.6 (3.5-5.1) mEq/L Chloride 103 104 (98-107) mEq/L Carbon Dioxide 26 20 L (23-29) mEq/L BUN 13 13 (8-23) mg/dL Creatinine 0.51 L 0.45 L (0.60-1.20) mg/dL Glucose 115 H 113 H (70-105) mg/dL Calcium 8.2 L 7.8 L (8.6-10.3) mg/dL Adrenal panel 11/18/18 11/19/18 Range/Units 08:52 06:22 Sodium 136 135 L (136-145) mEq/L Potassium 3.2 L 3.6 (3.5-5.1) mEq/L Chloride 103 104 (98-107) mEq/L Carbon Dioxide 26 20 L (23-29) mEq/L BUN 13 13 (8-23) mg/dL Creatinine 0.51 L 0.45 L (0.60-1.20) mg/dL Glucose 115 H 113 H (70-105) mg/dL Calcium 8.2 L 7.8 L (8.6-10.3) mg/dL Consult Discharge Plan - Plan Referrals: Omid Luther MD [Primary Care Provider] -
[2018-11-19] MEDS: Ondansetron 4 MG/2 ML VIAL IVP PRN ×2 (09:18→21:22)
[2018-11-19 09:31] LABS: Albumin 2.6 g/dL (3.5-5.7); Magnesium 1.8 mg/dL (1.6-2.6); Phosphorous 2.2 mg/dL (2.7-4.5)
[2018-11-19] MEDS ORDERED: Isovue-370 500 ML BOTTLE RC ONE (10:32)
[2018-11-19] MEDS ORDERED: D10% in Water 500 ML IVC PRN (11:54)
[2018-11-19] MEDS: *HR* Heparin 5,000 UNIT/ML VIAL SQ SCH ×2 (13:51→21:27)
[2018-11-19] MEDS: Fluconazole 400 MG/200 ML 400 MG/200 ML BAG IVPB SCH ×2 (15:24→17:10)
[2018-11-19] MEDS: Scopolamine Patch 1.5 MG PATCH.TD72 TD SCH (15:25)
[2018-11-19] MEDS: Ketorolac 15 MG/ML VIAL IVP PRN (15:35)
[2018-11-19] MEDS ORDERED: Clinimix E 5%-15% SOLUTION 2,000 ML with MVI, adult with vitamin K 10 ML IVC SCH (17:00)
[2018-11-20] MEDS: Insulin LISPRO 300 UNITS/3 ML VIAL SQ SCH ×7 (00:03→23:46)
[2018-11-20] MEDS: Piperacillin/Tazobactam 3.375 GM in 0.9 % Sodium Chloride Mini Bag 100 ML IVPB SCH ×3 (00:03→16:32)
[2018-11-20] MEDS: Ketorolac 15 MG/ML VIAL IVP PRN ×4 (00:13→23:45)
[2018-11-20 04:19] LABS: BUN/Creatinine Ratio 31 (6-26); Basophils % 0.1 %; Blood Urea Nitrogen 17 mg/dL (8-23); Carbon Dioxide 23 mEq/L (23-29); Chloride 104 mEq/L (98-107); Eosinophils # 0.2 K/mcL (0.0-0.6); Eosinophils % 1.9 %; Glucose 213 mg/dL (70-105); Hematocrit 25.2 % (35.3-44.9); Immature Granulocytes % 0.5 % (0-4); Lymphocytes # 0.8 K/mcL (0.6-4.6); Lymphocytes % 9.8 %; Magnesium 1.8 mg/dL (1.6-2.6); Mean Corpuscular HGB Conc 31.7 g/dL (31.6-35.5); Mean Corpuscular Hemoglobin 29.1 pg (28.0-33.3); Mean Corpuscular Volume 91.6 fL (83.0-100.0); Mean Platelet Volume 9.2 fL (9.4-12.4); Monocytes # 0.5 K/mcL (0.0-1.3); Monocytes % 5.7 %; Neutrophils # 6.5 K/mcL (1.6-8.9); Osmolality,Calculated 294 (280-300); Phosphorous 2.6 mg/dL (2.7-4.5); Platelet Count 316 K/mcL (140-400); Potassium 3.3 mEq/L (3.5-5.1); Red Blood Count 2.75 M/mcL (3.82-4.97); Red Cell Distribution Width 13.2 % (11.5-14.5); Sodium 138 mEq/L (136-145); Triglycerides 200 mg/dL (< 150); eGFR For Non-African Americans > 60 (> 60)
[2018-11-20] MEDS: *HR* Heparin 5,000 UNIT/ML VIAL SQ SCH ×3 (06:24→21:50)
[2018-11-20] MEDS: Ondansetron 4 MG/2 ML VIAL IVP PRN (08:43)
[2018-11-20] MEDS: Pantoprazole 40 MG VIAL IVP SCH (08:43)
[2018-11-20] MEDS: Fluconazole 400 MG/200 ML 400 MG/200 ML BAG IVPB SCH (08:44)
[2018-11-20] MEDS ORDERED: Furosemide 40 MG/4 ML VIAL IVP ONE (09:08)
--- NOTE | 2018-11-20 09:37 | General Surgery Progress Note ---
Date of Encounter: 11/20/18 Time of Encounter: 09:00 - Assessment and Plan (1) Vomiting Current Visit: Yes Status: Acute Nausea remains after bowel rest. She reports nausea at baseline for the last several years. She does not feel nausea right now is any worse (although she has been NPO). CT is w/o evidence of leak We will attempt to control nausea enough to tolerate liquid. She states Zofran and promethazine are not working. We will trial Scheduled Carafate, compazine, and reglan. Will closely monitor for extra prymidial effects. Continue TPN until taking full liquids. It is the expectation that TPN will not be continued as a long-term nutrition. Anticipate continue TPN another 24-48 hours pending clinical course Qualifiers: Vomiting type: unspecified Vomiting Intractability: intractable Nausea presence: with nausea Qualified Code(s): R11.2 - Nausea with vomiting, unspecified (2) Severe protein-calorie malnutrition Current Visit: Yes Status: Acute PICC and TPN until able to transition to po See assessment and plan above. (3) S/P partial colectomy Current Visit: No Status: Acute s/p robotic rectosigmoid resection with 29 mm EEA stapling enclosure bladder fistula on 11/09/[address] Walker final pathology noted benign colonic mucosa, diverticulosis, too benign lymph nodes, margins negative for neoplasm 11/16/2018 CT abdomen pelvis with IV and rectal contrast noted postsurgical changes in the rectosigmoid region with small amount of adjacent fat stranding, free fluid, and a few small foci of gas. No extra luminal contrast or fistula identified. 11/19/18 CT of the abdomen and pelvis with rectal contrast noted to small defects along the posterior wall of the sigmoid colon concern for leak of contrast that was smaller than the previous exam. No abscess or thickening note d. Images were reviewed with the surgeon who noted the areas noted are not near the anastomosis and unlikely felt to be any leak. There is a moderate pericardial effusion and slight atelectasis. Leukocytosis resolved. Continue IV Zosyn and Diflucan (4) Colovesical fistula Current Visit: Yes Status: Chronic s/p repair 11/09/2018 Tomlin removed 11/15/2018 11/19/2018 pre-void residual 161 mL, urinated 160 mL, Post avoid residual bladder scan 0 (5) Nausea Current Visit: Yes Status: Acute continue antiemetics See vomiting above (6) UTI (urinary tract infection) Current Visit: Yes Status: Acute culture noted ecoli susceptible to Zosyn Continue IV zosyn Bladder scan as above if acute urinary retention, will consult urology for possible tomlin placement Qualifiers: Urinary tract infection type: site unspecified Hematuria presence: without hematuria Qualified Code(s): N39.0 - Urinary tract infection, site not specified (7) Chest pressure Current Visit: Yes Status: Acute management per cardiology Echo noted ejection fraction approximately 65%, mild diastolic dysfunction, mild tricuspid regurgitation, mild pulmonary hypertension Will treat with 40 mg IV Lasix for fluid overload suspected given recent resuscitation of dehydration (8) Generalized weakness Current Visit: Yes Status: Acute pt does not feel she can function at home consult PT/OT and SW for placement DC planning pending nausea control and placement anticipate in the next 24 to 48 hours. She will not be discharged on TPN. (9) Dehydration Current Visit: Yes Status: Resolved (10) Diastolic dysfunction Current Visit: Yes Status: Acute see above (11) Fluid overload Current Visit: Yes Status: Acute see above Qualifiers: Hypervolemia type: transfusion-associated Qualified Code(s): E87.71 - Transfusion associated circulatory overload Subjective Patient reports: no new complaints, pain is less, voiding w/o difficulty, flatus, no bowel movement, nausea, afebrile Narrative: states she "still just don't feel well." Reports feeling nauseated but that the nausea feels more at baseline. she requests "some orange juice." She reports (and bedside RN confirms) she had been up in chair this am Objective Vital Signs - Last 8 Hours Temp Pulse Resp BP Pulse Ox 11/20/18 03:20 98.9 F 80 18 132/70 95 Intake and Output 11/19/18 11/20/18 11/20/18 23:59 07:59 15:59 Intake Total 388.7 / 388.7 100 / 100 Output Total 150 / 150 200 / 200 150 / 150 Balance 238.7 / 238.7 -100 / -100 -150 / -150 Intake: IV Fluids 388.7 / 388.7 100 / 100 0.9 % Sodium Chloride 1,000 ML 88.7 / 88.7 @ 100 mls/hr IVC .Q10H [facility] Rx#: [id number] Diflucan Premix 400 MG/200 ML 200 / 200 400 mg In 200 ml @ 100 mls/hr IVPB Q2H [facility] Rx#:[id number] Zosyn 3.375 GM In 0.9 % Sodium 100 / 100 100 / 100 Chloride (Mini-Bag +) 100 ML @ 25 mls/hr IVPB Q8HR [facility] Rx#: [id number] Output: Urine 150 / 150 200 / 200 150 / 150 Other: Meal npo Breakfast NPO Percent of Meal Consumed 0% 0% Weight 67 kg Blood Glucose* 190 212 - General physical appearance no distress, chronically ill - Eyes normal ocular movement - ENT normal nares, normal mucosa, atraumatic, normocephalic - Neck Neck exam: trachea midline - Cardiovascular Cardiovascular exam: Present: RRR, murmurs - Abdomen Abdomen: Present: bowel sounds present, soft, tender (expected postoperative) Hernia: none - Incision Incision: Present: clean and dry, intact - Integumentary no rash - Musculoskeletal normal posture - Psychiatric oriented to time, oriented to person, oriented to place, speech is normal, memory intact - Labs 11/20/18 03:30 11/20/18 03:30 Diabetes panel 11/19/18 11/20/18 Range/Units 06:22 03:30 Sodium 138 (136-145) mEq/L Potassium 3.3 L (3.5-5.1) mEq/L Chloride 104 (98-107) mEq/L Carbon Dioxide 23 (23-29) mEq/L BUN 17 (8-23) mg/dL Creatinine 0.54 L (0.60-1.20) mg/dL Glucose 213 H (70-105) mg/dL Calcium 8.0 L (8.6-10.3) mg/dL Albumin 2.6 L (3.5-5.7) g/dL Triglycerides 200 H (< 150) mg/dL Calcium panel 11/19/18 11/20/18 Range/Units 06:22 03:30 Calcium 8.0 L (8.6-10.3) mg/dL Phosphorus 2.2 L 2.6 L (2.7-4.5) mg/dL Albumin 2.6 L (3.5-5.7) g/dL Pituitary panel 11/20/18 Range/Units 03:30 Sodium 138 (136-145) mEq/L Potassium 3.3 L (3.5-5.1) mEq/L Chloride 104 (98-107) mEq/L Carbon Dioxide 23 (23-29) mEq/L BUN 17 (8-23) mg/dL Creatinine 0.54 L (0.60-1.20) mg/dL Glucose 213 H (70-105) mg/dL Calcium 8.0 L (8.6-10.3) mg/dL Adrenal panel 11/19/18 11/20/18 Range/Units 06:22 03:30 Sodium 138 (136-145) mEq/L Potassium 3.3 L (3.5-5.1) mEq/L Chloride 104 (98-107) mEq/L Carbon Dioxide 23 (23-29) mEq/L BUN 17 (8-23) mg/dL Creatinine 0.54 L (0.60-1.20) mg/dL Glucose 213 H (70-105) mg/dL Calcium 8.0 L (8.6-10.3) mg/dL Albumin 2.6 L (3.5-5.7) g/dL Consult Discharge Plan - Plan Referrals: Omid Luther MD [Primary Care Provider] -
[2018-11-20] MEDS ORDERED: Potassium Chloride 40 MEQ, Lidocaine 1% 2 ML in D5% in Water 500 ML IVPB ONE (10:06)
[2018-11-20] MEDS: Metoclopramide 10 MG/2 ML VIAL IVP SCH ×3 (11:00→21:50)
[2018-11-20] MEDS: Saliva Stimulant 100ml BOTTLE PO PRN (11:10)
[2018-11-20] MEDS ORDERED: Clinimix E 5%-15% SOLUTION 2,000 ML with MVI, adult with vitamin K 10 ML IVC SCH (17:00)
--- NOTE | 2018-11-20 19:25 | Electrocardiograph Report ---
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
[2018-11-21] MEDS: Piperacillin/Tazobactam 3.375 GM in 0.9 % Sodium Chloride Mini Bag 100 ML IVPB SCH ×4 (00:21→23:53)
[2018-11-21] MEDS: Insulin LISPRO 300 UNITS/3 ML VIAL SQ SCH ×6 (04:01→23:52)
[2018-11-21 05:56] LABS: BUN/Creatinine Ratio 25 (6-26); Blood Urea Nitrogen 13 mg/dL (8-23); Calcium 7.9 mg/dL (8.6-10.3); Carbon Dioxide 26 mEq/L (23-29); Chloride 100 mEq/L (98-107); Glucose 291 mg/dL (70-105); Magnesium 1.6 mg/dL (1.6-2.6); Osmolality,Calculated 287 (280-300); Phosphorous 2.3 mg/dL (2.7-4.5); Potassium 3.2 mEq/L (3.5-5.1); Sodium 133 mEq/L (136-145); eGFR For Non-African Americans > 60 (> 60)
[2018-11-21] MEDS: *HR* Heparin 5,000 UNIT/ML VIAL SQ SCH ×3 (06:18→22:09)
[2018-11-21] MEDS: Metoclopramide 10 MG/2 ML VIAL IVP SCH ×4 (06:18→22:09)
[2018-11-21] MEDS: Pantoprazole 40 MG VIAL IVP SCH (08:32)
[2018-11-21] MEDS: Ketorolac 15 MG/ML VIAL IVP PRN ×3 (08:33→22:10)
[2018-11-21] MEDS: Fluconazole 400 MG/200 ML 400 MG/200 ML BAG IVPB SCH (08:33)
[2018-11-21] MEDS: Saliva Stimulant 100ml BOTTLE PO PRN (08:55)
[2018-11-21] MEDS ORDERED: Potassium Chloride 40 MEQ, Lidocaine 1% 2 ML in D5% in Water 500 ML IVPB ONE (10:36)
--- NOTE | 2018-11-21 10:41 | General Surgery Progress Note ---
Date of Encounter: 11/21/18 Time of Encounter: 10:00 - Assessment and Plan (1) S/P partial colectomy Current Visit: No Status: Acute s/p robotic rectosigmoid resection with 29 mm EEA stapling enclosure bladder fistula on 11/09/[address] Walker final pathology noted benign colonic mucosa, diverticulosis, too benign lymph nodes, margins negative for neoplasm 11/16/2018 CT abdomen pelvis with IV and rectal contrast noted postsurgical changes in the rectosigmoid region with small amount of adjacent fat stranding, free fluid, and a few small foci of gas. No extra luminal contrast or fistula identified. 11/19/18 CT of the abdomen and pelvis with rectal contrast noted to small defects along the posterior wall of the sigmoid colon concern for leak of contrast that was smaller than the previous exam. No abscess or thickening noted. Images were reviewed with the surgeon who noted the areas noted are not near the anastomosis and unlikely felt to be any leak. There is a moderate pericardial effusion and slight atelectasis. Leukocytosis resolved. Continue IV Zosyn and Diflucan Plan: Advance to full liquid diet Continue TPN for nutritional support IV antibiotics- Zosyn and Diflucan Supportive care and pain control Increase activity as tolerated PT/OT for mobilization PPI therapy daily (2) Nausea Current Visit: Yes Status: Acute Improving Antiemetics as needed (3) Generalized weakness Current Visit: Yes Status: Acute PT/OT daily for mobilization Will need short term rehab at discharge (4) Severe protein-calorie malnutrition Current Visit: Yes Status: Acute Advance to full liquid diet TPN for nutritional support (5) DM type 2 (diabetes mellitus, type 2) Current Visit: Yes Status: Chronic Increase insulin coverage to medium sliding scale Will monitor and adjust as necessary 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 Diabetes mellitus complication status: without complication Qualified Code(s): E11.9 - Type 2 diabetes mellitus without complications (6) Hypokalemia Current Visit: Yes Status: Acute Replace potassium Repeat am labs (7) UTI (urinary tract infection) Current Visit: Yes Status: Acute culture noted ecoli susceptible to Zosyn Continue IV zosyn Qualifiers: Urinary tract infection type: site unspecified Hematuria presence: without hematuria Qualified Code(s): N39.0 - Urinary tract infection, site not specified (8) DVT prophylaxis Current Visit: Yes Status: Acute Heparin 5,000 units SQ twice daily for DVT prophylaxis EPCDs to bilateral lower extremities for DVT prophylaxis Ambulate hallways TID with assistance Subjective Patient reports: no new complaints, feels better, still having pain, pain is less, tolerating liquids well, voiding w/o difficulty, flatus, bowel movement, diarrhea, nausea (controlled with medication), afebrile, other (She states that she does have an increasing appetite and would like to try oatmeal and a strawberry milkshake) Objective Vital Signs - Last 8 Hours Temp Pulse Resp BP Pulse Ox 11/21/18 09:02 94 11/21/18 07:21 98.8 F 89 17 126/66 94 11/21/18 03:57 99.0 F 84 16 120/65 96 Intake and Output 11/20/18 11/21/18 11/21/18 23:59 07:59 15:59 Intake Total 2069 / 2069 280 / 280 120 / 120 Output Total 380 / 380 500 / 500 0 / 0 Balance 1689 / 1689 -220 / -220 120 / 120 Intake: IV Fluids 1769 / 1769 100 / 100 Clinimix E 5%-15% SOLUTION 2, 1147 / 1147 000 ML @ 50 mls/hr IVC .Q24H GEO with M.v.i. Adult 10 ml Rx# :[id number] Zosyn 3.375 GM In 0.9 % Sodium 100 / 100 100 / 100 Chloride (Mini-Bag +) 100 ML @ 25 mls/hr IVPB Q8HR GEO Rx#: [id number] KCl 40 MEQ Xylocaine 2 ML In 522 / 522 Dextrose 5% 500 ML @ 130.5 mls/ hr IVPB ONCE ONE Rx#:[id number] Oral 300 / 300 180 / 180 120 / 120 Output: Urine 380 / 380 500 / 500 0 / 0 Other: Meal Dinner Stool Size Small Smear Stool Consistency loose loose liquid Stool Color Brown Brown # Bowel Movements 1 Weight 72.6 kg Blood Glucose* 277 294 Patient Weight 11/21/18 23:59 Weight 72.6 kg - General physical appearance well developed, no distress - Eyes normal ocular movement - ENT dry mucosa, atraumatic, normocephalic - Neck Neck exam: trachea midline - Respiratory normal respiratory effort, clear to auscultation - Cardiovascular Cardiovascular exam: Present: RRR - Abdomen Abdomen: Present: bowel sounds present, soft, distended, tender (mildly tender (improving)) - Incision Incision: Present: clean and dry, intact - Neurologic CN 2-12 grossly intact - Musculoskeletal other (physical deconditioning noted) - Psychiatric oriented to time, oriented to person, oriented to place, speech is normal, memory intact - Labs 11/20/18 03:30 11/21/18 05:20 Diabetes panel 11/21/18 Range/Units 05:20 Sodium 133 L (136-145) mEq/L Potassium 3.2 L (3.5-5.1) mEq/L Chloride 100 (98-107) mEq/L Carbon Dioxide 26 (23-29) mEq/L BUN 13 (8-23) mg/dL Creatinine 0.51 L (0.60-1.20) mg/dL Glucose 291 H (70-105) mg/dL Calcium 7.9 L (8.6-10.3) mg/dL Calcium panel 11/21/18 Range/Units 05:20 Calcium 7.9 L (8.6-10.3) mg/dL Phosphorus 2.3 L (2.7-4.5) mg/dL Pituitary panel 11/21/18 Range/Units 05:20 Sodium 133 L (136-145) mEq/L Potassium 3.2 L (3.5-5.1) mEq/L Chloride 100 (98-107) mEq/L Carbon Dioxide 26 (23-29) mEq/L BUN 13 (8-23) mg/dL Creatinine 0.51 L (0.60-1.20) mg/dL Glucose 291 H (70-105) mg/dL Calcium 7.9 L (8.6-10.3) mg/dL Adrenal panel 11/21/18 Range/Units 05:20 Sodium 133 L (136-145) mEq/L Potassium 3.2 L (3.5-5.1) mEq/L Chloride 100 (98-107) mEq/L Carbon Dioxide 26 (23-29) mEq/L BUN 13 (8-23) mg/dL Creatinine 0.51 L (0.60-1.20) mg/dL Glucose 291 H (70-105) mg/dL Calcium 7.9 L (8.6-10.3) mg/dL Consult Discharge Plan - Plan Referrals: Omid Luther MD [Primary Care Provider] - - Attending Attestation For this encounter, I have reviewed the HOME CARE ADMINISTRATOR or PA documentation, treatment plan, and medical decision making; and I have had face to face time with this patient.
[2018-11-21] MEDS ORDERED: Potassium Phosphate 44 MEQ in 0.9 % Sodium Chloride 250 ML IVPB ONE (10:49)
[2018-11-21] MEDS ORDERED: Clinimix E 5%-15% SOLUTION 2,000 ML with MVI, adult with vitamin K 10 ML IVC SCH (17:00)
[2018-11-22] MEDS: Insulin LISPRO 300 UNITS/3 ML VIAL SQ SCH ×5 (03:59→21:39)
[2018-11-22 04:14] LABS: Basophils % 0.3 %; Eosinophils # 0.2 K/mcL (0.0-0.6); Eosinophils % 2.4 %; Hematocrit 22.8 % (35.3-44.9); Hemoglobin 7.2 g/dL (11.5-15.4); Immature Granulocytes % 2.3 % (0-4); Lymphocytes # 1.1 K/mcL (0.6-4.6); Lymphocytes % 12.2 %; Mean Corpuscular HGB Conc 31.6 g/dL (31.6-35.5); Mean Corpuscular Hemoglobin 28.7 pg (28.0-33.3); Mean Corpuscular Volume 90.8 fL (83.0-100.0); Mean Platelet Volume 9.5 fL (9.4-12.4); Monocytes # 0.6 K/mcL (0.0-1.3); Neutrophils # 6.7 K/mcL (1.6-8.9); Platelet Count 312 K/mcL (140-400); Red Blood Count 2.51 M/mcL (3.82-4.97); Red Cell Distribution Width 13.1 % (11.5-14.5); Segmented Neutrophils % 75.8 %
[2018-11-22 04:33] LABS: BUN/Creatinine Ratio 26 (6-26); Blood Urea Nitrogen 12 mg/dL (8-23); Carbon Dioxide 27 mEq/L (23-29); Chloride 102 mEq/L (98-107); Glucose 235 mg/dL (70-105); Osmolality,Calculated 287 (280-300); Potassium 3.6 mEq/L (3.5-5.1); Sodium 135 mEq/L (136-145); eGFR For Non-African Americans > 60 (> 60)
[2018-11-22 04:39] LABS: Platelet Estimate Normal (Normal); Polychromasia 1+ (Not Present)
[2018-11-22] MEDS: *HR* Heparin 5,000 UNIT/ML VIAL SQ SCH ×3 (06:14→21:48)
[2018-11-22] MEDS: Metoclopramide 10 MG/2 ML VIAL IVP SCH (06:14)
[2018-11-22] MEDS: Ketorolac 15 MG/ML VIAL IVP PRN ×3 (06:22→21:49)
[2018-11-22 07:49] LABS: Magnesium 1.7 mg/dL (1.6-2.6); Phosphorous 2.7 mg/dL (2.7-4.5)
[2018-11-22] MEDS: Fluconazole 400 MG/200 ML 400 MG/200 ML BAG IVPB SCH (08:07)
[2018-11-22] MEDS: Pantoprazole 40 MG VIAL IVP SCH (08:07)
[2018-11-22] MEDS: Piperacillin/Tazobactam 3.375 GM in 0.9 % Sodium Chloride Mini Bag 100 ML IVPB SCH ×3 (08:10→23:16)
[2018-11-22 09:20] LABS: % Iron Saturation 5 % (15-50); Iron 12 mcg/dL (50-170); Transferrin 170 mg/dL (203-362)
[2018-11-22] MEDS ORDERED: Iron Sucrose Complex 400 MG in 0.9 % Sodium Chloride 250 ML IVPB ONE (09:33)
--- NOTE | 2018-11-22 14:32 | General Surgery Progress Note ---
Date of Encounter: 11/22/18 Time of Encounter: 11:00 - Assessment and Plan (1) Vomiting Current Visit: Yes Status: Acute Nausea is significantly improved with Compazine and Reglan. She is tolerating full liquids and we will stop TPN. Advanced to soft diet. DC planning pending insurance authorization to rehab. Most likely Monday11/23/2018 Qualifiers: Vomiting type: unspecified Vomiting Intractability: intractable Nausea presence: with nausea Qualified Code(s): R11.2 - Nausea with vomiting, unspecified (2) Severe protein-calorie malnutrition Current Visit: Yes Status: Acute Stop TPN today at 5. Protein supplements per dietary recommendations. Patient states she is fearful to attempt to eat meat as this is what typically made her feel most nauseated. (3) S/P partial colectomy Current Visit: No Status: Acute s/p robotic rectosigmoid resection with 29 mm EEA stapling enclosure bladder fis morgan on 11/09/[address] Walker final pathology noted benign colonic mucosa, diverticulosis, too benign lymph nodes, margins negative for neoplasm 11/16/2018 CT abdomen pelvis with IV and rectal contrast noted postsurgical changes in the rectosigmoid region with small amount of adjacent fat stranding, free fluid, and a few small foci of gas. No extra luminal contrast or fistula identified. 11/19/18 CT of the abdomen and pelvis with rectal contrast noted to small defects along the posterior wall of the sigmoid colon concern for leak of contrast that was smaller than the previous exam. No abscess or thickening noted. Images were reviewed with the surgeon who noted the areas noted are not near the anastomosis and unlikely felt to be any leak. There is a moderate pericardial effusion and slight atelectasis. Leukocytosis resolved. Continue IV Zosyn and Diflucan, transition to PO antibiot ics in the a.m. 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 coli. She is on Zosyn in the hospital. She has a penicillin G, Bactrim, and Cipro allergy. Will transition to Nitrofuantoin for 7 days at dc (5) Nausea Current Visit: Yes Status: Acute continue antiemetics See vomiting above (6) UTI (urinary tract infection) Current Visit: Yes Status: Acute culture noted ecoli susceptible to Zosyn Continue IV zosyn, will need to transition to Macrobid at d/c. Qualifiers: Urinary tract infection type: site unspecified Hematuria presence: without hematuria Qualified Code(s): N39.0 - Urinary tract infection, site not specified (7) Chest pressure Current Visit: Yes Status: Acute management per cardiology Echo noted ejection fraction approximately 65%, mild diastolic dysfunction, mild tricuspid regurgitation, mild pulmonary hypertension Will treat with 40 mg IV Lasix for fluid overload suspected given recent resuscitation of dehydration (8) Generalized weakness Current Visit: Yes Status: Acute pt does not feel she can function at home consult PT/OT and SW for placement DC planning pending nausea control and placement anticipate in the next 24 to 48 hours. She will not be discharged on TPN. (9) Dehydration Current Visit: Yes Status: Resolved CONTINUE IVF Strict I&O (noted poor documentation of output. Unclear if the patient is not having output or if it is poor documentation). Reviewed with bedside RN, need for accurate I&O. Pre and postvoid bladder scan (10) Diastolic dysfunction Current Visit: Yes Status: Acute see above (11) Fluid overload Current Visit: Yes Status: Acute see above Qualifiers: Hypervolemia type: transfusion-associated Qualified Code(s): E87.71 - Transfusion associated circulatory overload Subjective Patient reports: no new complaints, feels better, pain is less, tolerating liquids well, voiding w/o difficulty, flatus, bowel movement, nausea (but improved), afebrile Objective Vital Signs - Last 8 Hours Temp Pulse Resp BP Pulse Ox 11/22/18 12:00 98.8 F 91 16 157/76 94 11/22/18 08:30 95 11/22/18 07:19 99.0 F 88 16 144/66 95 Intake and Output 11/21/18 11/22/18 11/22/18 23:59 07:59 15:59 Intake Total 1860 / 1860 100 / 100 120 / 120 Output Total 500 / 500 450 / 450 0 / 0 Balance 1360 / 1360 -350 / -350 120 / 120 Intake: IV Fluids 1740 / 1740 100 / 100 Clinimix E 5%-15% SOLUTION 2, 1640 / 1640 000 ML @ 70 mls/hr IVC .Q24H GEO with M.v.i. Adult 10 ml Rx# :[id number] Zosyn 3.375 GM In 0.9 % Sodium 100 / 100 100 / 100 Chloride (Mini-Bag +) 100 ML @ 25 mls/hr IVPB Q8HR GEO Rx#: [id number] Oral 120 / 120 120 / 120 Output: Urine 500 / 500 450 / 450 0 / 0 Other: Meal Breakfast Percent of Meal Consumed 30% # Voids 1 Weight 75.8 kg Blood Glucose* 241 239 277 Patient Weight 11/22/18 23:59 Weight 75.8 kg - General physical appearance no distress, no pain, other (sitting upright in chair) - ENT atraumatic, normocephalic - Neck Neck exam: trachea midline - Respiratory normal expansion, normal respiratory effort, clear to auscultation - Abdomen Abdomen: Present: bowel sounds present, soft, non tender Hernia: none - Integumentary no rash - Neurologic normal coordination, normal sensation - Musculoskeletal normal posture - Psychiatric oriented to person, oriented to place, speech is normal, memory intact - Labs 11/22/18 03:57 11/22/18 03:57 Diabetes panel 11/22/18 Range/Units 03:57 Sodium 135 L (136-145) mEq/L Potassium 3.6 (3.5-5.1) mEq/L Chloride 102 (98-107) mEq/L Carbon Dioxide 27 (23-29) mEq/L BUN 12 (8-23) mg/dL Creatinine 0.47 L (0.60-1.20) mg/dL Glucose 235 H (70-105) mg/dL Calcium 8.0 L (8.6-10.3) mg/dL Calcium panel 11/22/18 Range/Units 03:57 Calcium 8.0 L (8.6-10.3) mg/dL Phosphorus 2.7 (2.7-4.5) mg/dL Pituitary panel 11/22/18 Range/Units 03:57 Sodium 135 L (136-145) mEq/L Potassium 3.6 (3.5-5.1) mEq/L Chloride 102 (98-107) mEq/L Carbon Dioxide 27 (23-29) mEq/L BUN 12 (8-23) mg/dL Creatinine 0.47 L (0.60-1.20) mg/dL Glucose 235 H (70-105) mg/dL Calcium 8.0 L (8.6-10.3) mg/dL Adrenal panel 11/22/18 Range/Units 03:57 Sodium 135 L (136-145) mEq/L Potassium 3.6 (3.5-5.1) mEq/L Chloride 102 (98-107) mEq/L Carbon Dioxide 27 (23-29) mEq/L BUN 12 (8-23) mg/dL Creatinine 0.47 L (0.60-1.20) mg/dL Glucose 235 H (70-105) mg/dL Calcium 8.0 L (8.6-10.3) mg/dL Consult Discharge Plan - Plan Referrals: Omid Luther MD [Primary Care Provider] -
[2018-11-22 17:33] LABS: Bilirubin,Urine Negative (Negative); Blood,Urine Large (Negative); Clarity,Urine Turbid (Clear); Color,Urine Yellow (Yellow); Glucose,Urine (UA) 250 mg/dL (Normal); Ketones,Urine Negative (Negative); Leukocyte Esterase,Urine Large (Negative); Nitrite,Urine Negative (Negative); PH,Urine 6.5 pH Units (5.0-8.0); Protein,Urine Trace mg/dL (Neg-Trace); Specific Gravity,Urine 1.014 (1.010-1.025); Urobilinogen,Urine Normal (Normal)
[2018-11-22 17:38] LABS: Hyaline Casts,Urine None Seen per lpf (None-Few); WBC,Urine TNTC per hpf (0-3)
[2018-11-22 17:54] LABS: RBC,Urine 15-30 per hpf (0-3); Squamous Epithelial Cell,Urine Few per lpf (None-Few); Yeast,Urine Few per hpf (None Seen)
[2018-11-22 17:55] LABS: Amorphous Sediment,Urine Few (Few); Bacteria,Urine Moderate per hpf (None-Few)
[2018-11-22] MEDS ORDERED: Insulin LISPRO 300 UNITS/3 ML VIAL SQ SCH (21:00)
[2018-11-23] MEDS: *HR* Heparin 5,000 UNIT/ML VIAL SQ SCH ×2 (06:16→13:39)
[2018-11-23] MEDS: Ketorolac 15 MG/ML VIAL IVP PRN (06:20)
[2018-11-23] MEDS ORDERED: Insulin LISPRO 300 UNITS/3 ML VIAL SQ SCH (07:30)
[2018-11-23 07:41] LABS: Basophils # 0.1 K/mcL (0.0-0.2); Basophils % 0.6 %; Eosinophils # 0.3 K/mcL (0.0-0.6); Eosinophils % 2.9 %; Hematocrit 24.5 % (35.3-44.9); Hemoglobin 7.7 g/dL (11.5-15.4); Immature Granulocytes % 4.3 % (0-4); Lymphocytes # 1.2 K/mcL (0.6-4.6); Mean Corpuscular HGB Conc 31.4 g/dL (31.6-35.5); Mean Corpuscular Hemoglobin 28.7 pg (28.0-33.3); Mean Corpuscular Volume 91.4 fL (83.0-100.0); Mean Platelet Volume 9.7 fL (9.4-12.4); Monocytes # 0.8 K/mcL (0.0-1.3); Monocytes % 8.3 %; Nucleated Red Blood Cells 0.2 /100 WBC (0); Platelet Count 368 K/mcL (140-400); Red Blood Count 2.68 M/mcL (3.82-4.97); Red Cell Distribution Width 13.3 % (11.5-14.5); Segmented Neutrophils % 71.9 %
[2018-11-23 07:44] LABS: Neutrophils # 7.1 K/mcL (1.6-8.9)
[2018-11-23 07:45] LABS: Alanine Aminotransferase 48 Units/L (7-52); Albumin 2.6 g/dL (3.5-5.7); Albumin/Globulin Ratio 0.8 (1.1-2.2); Alkaline Phosphatase 81 Units/L (34-104); Aspartate Amino Transferase 39 Units/L (13-39); BUN/Creatinine Ratio 17 (6-26); Bilirubin,Total 0.4 mg/dL (0.3-1.0); Blood Urea Nitrogen 9 mg/dL (8-23); Calcium 8.4 mg/dL (8.6-10.3); Carbon Dioxide 27 mEq/L (23-29); Chloride 101 mEq/L (98-107); Globulin 3.2 g/dL (2.4-3.5); Glucose 171 mg/dL (70-105); Osmolality,Calculated 287 (280-300); Potassium 4.1 mEq/L (3.5-5.1); Sodium 137 mEq/L (136-145); Total Protein 5.8 g/dL (6.4-8.9); eGFR For Non-African Americans > 60 (> 60)
[2018-11-23 08:31] LABS: Platelet Estimate Normal (Normal); Polychromasia 1+ (Not Present)
[2018-11-23] MEDS ORDERED: Nitrofurantoin (BID) 100 MG CAPSULE PO SCH (09:00)
[2018-11-23] MEDS: Piperacillin/Tazobactam 3.375 GM in 0.9 % Sodium Chloride Mini Bag 100 ML IVPB SCH (09:06)
[2018-11-23] MEDS: Fluconazole 400 MG/200 ML 400 MG/200 ML BAG IVPB SCH (09:07)
--- NOTE | 2018-11-23 09:12 | Discharge Summary ---
Addendum entered and electronically signed by Denise Kauffman CNP 11/23/18 12:42: Please note, Transfusion associated circulatory overload only Original Note: Orders not resulted at time of discharge: Pending orders 11/22/18 17:00 Culture,Urine [RM] Stat Date of Encounter: 11/23/18 Time of Encounter: 10:11 - Discharge Diagnosis (1) Vomiting Priority: Primary Status: Acute Qualifiers: Vomiting type: unspecified Vomiting Intractability: intractable Nausea presence: with nausea Qualified Code(s): R11.2 - Nausea with vomiting, unspecified (2) Severe protein-calorie malnutrition Priority: Secondary Status: Acute (3) S/P partial colectomy Priority: Secondary Status: Acute (4) Colovesical fistula Priority: Secondary Status: Chronic (5) Nausea Priority: Primary Status: Acute (6) UTI (urinary tract infection) Priority: Primary Status: Acute Qualifiers: Urinary tract infection type: site unspecified Hematuria presence: without hematuria Qualified Code(s): N39.0 - Urinary tract infection, site not specified (7) Chest pressure Priority: Secondary Status: Acute (8) Generalized weakness Priority: Primary Status: Acute (9) Dehydration Priority: Primary Status: Resolved (10) Diastolic dysfunction Priority: Secondary Status: Acute (11) Fluid overload Priority: Secondary Status: Acute Qualifiers: Hypervolemia type: transfusion-associated Qualified Code(s): E87.71 - Transfusion associated circulatory overload General Surgery Exam Initial Vital Signs Temp Pulse Resp BP Pulse Ox 98.1 F 94 17 138/72 92 11/16/18 13:40 11/16/18 13:40 11/16/18 13:40 11/16/18 13:40 11/16/18 13:40 - General physical appearance no distress, no pain - Neck trachea midline - Respiratory normal expansion, normal respiratory effort, clear to auscultation - Cardiovascular Cardiovascular exam: Present: RRR - Abdomen Abdomen general surgery: Present: bowel sounds present, soft, non tender - Genitourinary Present: other (peach colored cloudy urine) - Integumentary Integumentary general surgery: Present: warm and dry - Neurologic Present: normal coordination, normal sensation - Musculoskeletal Present: normal posture - Psychiatric Psychiatric general surgery: Present: appropriate, oriented to person, oriented to place, oriented to time, speech is normal, memory intact - Hospital Course Hospital course: Ms. Kim is a 73 year old female who presented on 11/16/2018 after an office appointment for follow-up of recto sigmoid colectomy and colovesical fistula repair on 11/09/[address] Gilbert. Her Montano catheter was removed in the office by Dr. Tejeda on 11/16/2018. At the above-mentioned office follow-up, she reported nausea, vomiting, fever, inability to hold down liquids, dry mouth, and generalized weakness. She stated at home she was not able to complete her usual activities, felt as though she would fall several times due to generalized weakness and not feel as though she was progressing. She was admitted to the hospital for further workup and IV fluids. She was supported with TPN. CT of the abdomen and pelvis noted a less than 1 cm fluid collection in the pelvis too small to drain, her urine was indicative of a UTI. Her final culture of the urinalysis noted positive E. coli. She was treated with IV Zosyn and Diflucan. She was transitioned to PO Macrobid due to her allergies and Diflucan was continued. For her acute on chronic nausea, she was treated with scheduled Compazine and Reglan as well as adding Carafate. She stated this combination was very effective. She was eventually transitioned to a soft diet and continues to tolerate this with some nausea but without vomiting. Given her generalized deconditioning and further clinical course, she is recommended a admission to rehab. She was seen by physical and occupational therapy who also recommended inpatient rehab. The patient is agreeable and we will begin discharge planning to [place] manner. She is recommended to follow- up with urology in aprox 4 weeks and with surgery as needed. - Time Spent with Patient Total time spent providing and/or coordinating discharge services: Greater than 30 minutes (ecf planning) - Discharge Medications Prescriptions: New Calcium Carbonate [Tums] 1,000 mg PO Q4H PRN tab.chew PRN Reason: Heartburn Fluconazole [Diflucan] 200 mg PO DAILY 7 Days tab Metoclopramide [Reglan] 10 mg PO QIDAC tablet Nitrofurantoin (BID) [Macrobid] 100 mg PO BIDWM 7 Days capsule Omeprazole [PriLOSEC] 40 mg PO DAILY capsule. Sucralfate [Carafate] 1 gm PO QIDAC udc Continue Simethicone [Gas-X] 80 mg PO ACHS PRN PRN Reason: BLOATING Multivit-Min/FA/Lycopen/Lutein [Adults 50+ Multivitamin Tablet] 1 each PO DAILY LORazepam [Ativan] 0.5 mg PO TID PRN PRN Reason: Anxiety Aspirin 325 mg PO DAILY Metformin HCl [Fortamet] 500 mg PO BIDWM [place]-3/Dha/Epa/Fish Oil [[place] 3 500 Softgel] 1 each PO DAILY Ondansetron ODT [Zofran ODT] 4 mg SL Q4HR PRN #30 tab.rapdis PRN Reason: Nausea Docusate Sodium [Colace] 100 mg PO BID PRN #30 capsule PRN Reason: Contstipation Cyanocobalamin (Vitamin B-12) [Vitamin B-12] 500 mcg PO QAM Enalapril/Hydrochlorothiazide [Enalapril-Hctz 5-12.5 mg Tab] 1 each PO QAM Phenazopyridine HCl [Pyridium] 200 mg PO TIDAC PRN #42 tab PRN Reason: urinary burning Discontinued Omeprazole [PriLOSEC] 20 mg PO QAM PRN PRN Reason: Heartburn Home Medications: Aspirin 325 mg PO DAILY 11/09/18 [History] LORazepam [Ativan] 0.5 mg PO TID PRN 11/09/18 [History] Metformin HCl [Fortamet] 500 mg PO BIDWM 11/09/18 [History] Multivit-Min/FA/Lycopen/Lutein [Adults 50+ Multivitamin Tablet] 1 each PO DAILY 11/09/18 [History] [place]-3/Dha/Epa/Fish Oil [[place] 3 500 Softgel] 1 each PO DAILY 11/09/18 [History] Simethicone [Gas-X] 80 mg PO ACHS PRN 11/09/18 [History] Cyanocobalamin (Vitamin B-12) [Vitamin B-12] 500 mcg PO QAM 11/12/18 [History] Docusate Sodium [Colace] 100 mg PO BID PRN #30 capsule 11/12/18 [Rx] Enalapril/Hydrochlorothiazide [Enalapril-Hctz 5-12.5 mg Tab] 1 each PO QAM 11/12/18 [History] Ondansetron ODT [Zofran ODT] 4 mg SL Q4HR PRN #30 tab.rapdis 11/12/18 [Rx] Phenazopyridine HCl [Pyridium] 200 mg PO TIDAC PRN #42 tab 11/12/18 [Rx] Calcium Carbonate [Tums] 1,000 mg PO Q4H PRN tab.chew 11/23/18 [Rx] Fluconazole [Diflucan] 200 mg PO DAILY 7 Days tab 11/23/18 [Rx] Metoclopramide [Reglan] 10 mg PO QIDAC tablet 11/23/18 [Rx] Nitrofurantoin (BID) [Macrobid] 100 mg PO BIDWM 7 Days capsule 11/23/18 [Rx] Omeprazole [PriLOSEC] 40 mg PO DAILY capsule. 11/23/18 [Rx] Sucralfate [Carafate] 1 gm PO QIDAC udc 11/23/18 [Rx] Allergies/Adverse Reactions: Allergy/AdvReac Type Severity Reaction Status Date / Time penicillin G Allergy Redness of Verified 11/17/18 11:11 Skin ciprofloxacin AdvReac Vomiting Verified 11/19/18 08:24 codeine AdvReac Vomiting Verified 11/19/18 08:24 ibuprofen [From Motrin] AdvReac Vomiting Verified 11/19/18 08:24 oxycodone [From Percocet] AdvReac Vomiting Verified 11/19/18 08:24 Sulfa (Sulfonamide AdvReac Vomiting Verified 11/19/18 08:24 Antibiotics) sulfamethoxazole AdvReac Vomiting Verified 11/19/18 08:24 [From Septra] trimethoprim [From Septra] AdvReac Vomiting Verified 11/19/18 08:24 misc throat products Allergy See Uncoded 11/17/18 11:11 Comments Date of admission: 11/20/18 09:50 Primary care physician: Omid Luther MD Consults: 11/18/18 15:08 Consult to Cardiology [CONS] Routine Comment: Consulting Provider: Cardiology Sallie Reason for Consult: chest pressure. New ST depression Call Completed: Yes 11/19/18 08:58 Consult to Invasive Line Access Team [CONS] Routine Reason for Consult: Picc Line Insertion Line Type: PICC PICC line indications: Parental nutrition Consult to Occupational Therapy [CONS] Stat Comment: Evaluate, develop and implement POC Reason for Consult: Mobilization and d/c planning Does patient have active BEDREST order?: No Is patient medically & hemodynamically stable?: Yes Consult to Physical Therapy [CONS] Stat Comment: Evaluate, develop and implement POC Reason for Consult: Mobilization and d/c planning Does patient have active BEDREST order?: Yes Is patient medically & hemodynamically stable?: No Consult to Wire Communications Engineer [CONS] Stat Reason for SW Consult: placement consult to scientific writer [Consult to Nutrition] [CONS] Stat Comment: Consulting Provider: NUTRITION Reason for Dietary Consult: TPN Start and Manage Discharging clinician: Bhavesh Kauffman) Anticipated date of discharge: 11/23/18 Labs on day of discharge: Labs from last 24 hours 11/23/18 11/23/18 11/22/18 06:43 06:43 20:16 WBC 9.8 RBC 2.68 L Hgb 7.7 L Hct 24.5 L MCV 91.4 MCH 28.7 MCHC 31.4 L RDW 13.3 Plt Count 368 MPV 9.7 Immature Gran % 4.3 H Seg Neutrophils % 71.9 Lymphocytes % 12.0 Monocytes % 8.3 Eosinophils % 2.9 Basophils % 0.6 Neutrophils # 7.1 Lymphocytes # 1.2 Monocytes # 0.8 Eosinophils # 0.3 Basophils # 0.1 Nucleated RBCs/100 WBC 0.2 H Platelet Estimate Normal Polychromasia 1+ A Sodium 137 Potassium 4.1 Chloride 101 Carbon Dioxide 27 BUN 9 Creatinine 0.52 L Est GFR ( Amer) > 60 Est GFR (Non-Af Amer) > 60 BUN/Creatinine Ratio 17 Glucose 171 H POC Glucose 221 H Calculated Osmolality 287 Calcium 8.4 L Iron % Saturation Transferrin Total Bilirubin 0.4 AST 39 ALT 48 Alkaline Phosphatase 81 Serum Total Protein 5.8 L Albumin 2.6 L Globulin 3.2 Albumin/Globulin Ratio 0.8 L Urine Color Urine Clarity Urine pH Ur Specific [place] Urine Protein Urine Glucose (UA) Urine Ketones Urine Blood Urine Nitrite Urine Bilirubin Urine Urobilinogen Ur Leukocyte Esterase Urine Microscopic RBC Urine Microscopic WBC Ur Squamous Epith Cells Amorphous Sediment Urine Bacteria Hyaline Casts Urine Yeast Ur Culture Indicated? 11/22/18 11/22/18 11/22/18 17:00 15:42 11:57 WBC RBC Hgb Hct MCV MCH MCHC RDW Plt Count MPV Immature Gran % Seg Neutrophils % Lymphocytes % Monocytes % Eosinophils % Basophils % Neutrophils # Lymphocytes # Monocytes # Eosinophils # Basophils # Nucleated RBCs/100 WBC Platelet Estimate Polychromasia Sodium Potassium Chloride Carbon Dioxide BUN Creatinine Est GFR ( Amer) Est GFR (Non-Af Amer) BUN/Creatinine Ratio Glucose POC Glucose 259 H 277 H Calculated Osmolality Calcium Iron % Saturation Transferrin Total Bilirubin AST ALT Alkaline Phosphatase Serum Total Protein Albumin Globulin Albumin/Globulin Ratio Urine Color Yellow Urine Clarity Turbid A Urine pH 6.5 Ur Specific [place] 1.014 Urine Protein Trace Urine Glucose (UA) 250 H Urine Ketones Negative Urine Blood Large H Urine Nitrite Negative Urine Bilirubin Negative Urine Urobilinogen Normal Ur Leukocyte Esterase Large H Urine Microscopic RBC 15-30 H Urine Microscopic WBC TNTC H Ur Squamous Epith Cells Few Amorphous Sediment Few Urine Bacteria Moderate H Hyaline Casts None Seen Urine Yeast Few H Ur Culture Indicated? YES A 11/22/18 11/22/18 07:17 03:57 WBC RBC Hgb Hct MCV MCH MCHC RDW Plt Count MPV Immature Gran % Seg Neutrophils % Lymphocytes % Monocytes % Eosinophils % Basophils % Neutrophils # Lymphocytes # Monocytes # Eosinophils # Basophils # Nucleated RBCs/100 WBC Platelet Estimate Polychromasia Sodium Potassium Chloride Carbon Dioxide BUN Creatinine Est GFR ( Amer) Est GFR (Non-Af Amer) BUN/Creatinine Ratio Glucose POC Glucose 239 H Calculated Osmolality Calcium Iron 12 L % Saturation 5 L Transferrin 170 L Total Bilirubin AST ALT Alkaline Phosphatase Serum Total Protein Albumin Globulin Albumin/Globulin Ratio Urine Color Urine Clarity Urine pH Ur Specific [place] Urine Protein Urine Glucose (UA) Urine Ketones Urine Blood Urine Nitrite Urine Bilirubin Urine Urobilinogen Ur Leukocyte Esterase Urine Microscopic RBC Urine Microscopic WBC Ur Squamous Epith Cells Amorphous Sediment Urine Bacteria Hyaline Casts Urine Yeast Ur Culture Indicated? Preliminary micro results at discharge 11/22/18 17:00 Urine Culture - Preliminary Urine,Catheterized (Straight) Culture is incubating. - Impressions ITS Impressions Abdomen/Pelvis CT 11/16/18 11:05 IMPRESSION: There are postsurgical changes in the rectosigmoid region with a small amount of adjacent fat stranding, free fluid, and a few small foci of gas, likely postoperative. No extraluminal contrast or fistula identified. A thin tubular fluid collection is seen extending from the left pelvis anteriorly and cranially. This measures less than 1 cm in transverse dimension is too small for drainage catheter placement. Sterility is indeterminate. There is thickening of the posterior bladder wall, likely postoperative. Mild asymmetric enhancement of the left uroepithelium. Findings may be inflammatory with infectious etiology not excluded. Clinical correlation recommended. D/ / Clarissa Sanderson MD / Clarissa Sanderson MD Interpreting Provider: Clarissa Sanderson MD Chest X-Ray 11/18/18 14:48 IMPRESSION: No evidence of acute cardiopulmonary disease. D/ / Nathanael Sainz MD / Nathanael Sainz MD Interpreting Provider: Nathanael Sainz MD Abdomen/Pelvis CT 11/19/18 09:25 IMPRESSION: 1. There are 2 small defects along the posterior wall of the sigmoid colon with leak of contrast, slightly smaller than the previous exam. No abscess. Thickening along the sigmoid colon wall is likely postoperative versus reactive. 2. Small bilateral pleural effusions, left side greater than right, with associated atelectasis in the lung bases. 3. Moderate pericardial effusion. 4. Slight increase in mild ascites. 5. There is a small amount of air noted near the vaginal cuff, likely postoperative. Induration in the pelvic fat is presumably related to treatment changes, stable. D/ / 11/19/2018 11:07:32 Kraig Simpson MD / [place] Interpreting Provider: Kraig Simpson MD Echocardiogram 11/19/18 13:15 Impressions: LVEF 65%. Mild left ventricular diastolic dysfunction. Normal right ventricular structure and function. Mild tricuspid regurgitation. Mild pulmonary hypertension. Left Ventricular Wall Motion: Rest Echo Findings The mid anterior septal, mid inferior lateral, basal anterior septal and basal inferior lateral loja were not visualized. All other wall segments showed normal motion. Findings: Study Quality * Technically challenging windows. ECG Findings * Normal sinus rhythm. Left Ventricle * LVEF 65%. * LV wall thickness measurements not optimally obtained. * Mild left ventricular diastolic dysfunction. Right Ventricle * Normal right ventricular structure and function. Left Atrium * Left atrium is not well visualized. Right Atrium * Right atrium is not well visualized. Aortic Valve * No aortic regurgitation. * Aortic valve not well visualized. * No aortic stenosis. Mitral Valve * Mitral valve not well visualized. * No mitral stenosis. * Trace mitral regurgitation. Tricuspid Valve * Tricuspid valve not well visualized. * Mild tricuspid regurgitation. * Estimated RA pressure is 8 mmHg. * Estimated RVSP is 38 mmHg. * Mild pulmonary hypertension. Pulmonic Valve * Pulmonic valve is not well visualized. * No pulmonic stenosis. * No pulmonic regurgitation. Pulmonary Artery * Pulmonary artery not well visualized. Aorta * Not well visualized. Pericardium * There is no pericardial effusion present. Interatrial Septum * No evidence of PFO by color Doppler. IVC * The IVC is not dilated. * < 50% respiratory change. - Patient Status Disposition: Transfer Inpatient Rehab Fac Condition: Good Functional capacity at discharge: independent ambulation Overall status at discharge: patient is progressing back to baseline - Discharge Instructions Instructions: Urinary Tract Infection in Women (GEN), Colectomy (GEN), Acute Nausea and Vomiting (DC) Follow Up With: Omid Luther MD [Primary Care Provider] - 12/04/18 9:15 am (Please follow up as schedule..) Gus Cobb MD [Partnered Physician] - (3-4 weeks. s/p urinary cath removed 11/16/[address] Tejeda, and UTI with e.coli, s/p repair of Colov esicular fistula) Bhavesh Gilbert DO [Partnered Physician] - (May follow-up with Dr. gilbert in 3-4 weeks if patient desires.) Additional Instructions: Take the nausea medications as directed before attempting to eat meals. Take CArafate as directed. Take Omeprazole in the morning on an empty stomach. Take they antibiotics as directed. Do Not stop antibiotics without talking to your provider. - Diet and Activity Activity: as per physical therapy, increase activity as tolerated Diet: other (soft blan diet with portein supplements TID)
[2018-11-23] MEDS ORDERED: *HR* LORazepam 0.5 MG TABLET PO PRN (09:16)
[2018-11-23] MEDS ORDERED: Simethicone 80 MG TAB.CHEW PO PRN (09:16)
[2018-11-23] MEDS ORDERED: Insulin LISPRO 300 UNITS/3 ML VIAL SQ ONE (09:21)
--- NOTE | 2018-11-23 10:04 | Physician Discharge Referral ---
ExtendedCare Referral Info Transfer To: [facility] Provider in Charge: Dr. Bhavesh Walker Provider in Charge after Transfer: Other (Tea And Spice Supervisor, rehab services aide, or PCP) Institutional Level of Care: Intermediate - Diagnosis (1) Vomiting Priority: Primary Status: Acute (2) Severe protein-calorie malnutrition Priority: Primary Status: Acute (3) S/P partial colectomy Priority: Secondary Status: Acute (4) Colovesical fistula Priority: Secondary Status: Chronic (5) Nausea Priority: Primary Status: Acute (6) UTI (urinary tract infection) Priority: Primary Status: Acute (7) Chest pressure Priority: Secondary Status: Acute (8) Generalized weakness Priority: Primary Status: Acute (9) Dehydration Priority: Primary Status: Resolved (10) Diastolic dysfunction Priority: Secondary Status: Acute (11) Fluid overload Priority: Secondary Status: Acute Prognosis: Fair Aware of Diagnosis: Patient, Family Aware of Prognosis: Patient, Family - Transfer Medications Prescriptions: Fluconazole [Diflucan] 200 mg PO DAILY 7 Days tab Home Medications: Aspirin 325 mg PO DAILY 11/09/18 [History] LORazepam [Ativan] 0.5 mg PO TID PRN 11/09/18 [History] Metformin HCl [Fortamet] 500 mg PO BIDWM 11/09/18 [History] Multivit-Min/FA/Lycopen/Lutein [Adults 50+ Multivitamin Tablet] 1 each PO DAILY 11/09/18 [History] [place]-3/Dha/Epa/Fish Oil [[place] 3 500 Softgel] 1 each PO DAILY 11/09/18 [History] Simethicone [Gas-X] 80 mg PO ACHS PRN 11/09/18 [History] Cyanocobalamin (Vitamin B-12) [Vitamin B-12] 500 mcg PO QAM 11/12/18 [History] Docusate Sodium [Colace] 100 mg PO BID PRN #30 capsule 11/12/18 [Rx] Enalapril/Hydrochlorothiazide [Enalapril-Hctz 5-12.5 mg Tab] 1 each PO QAM 11/12/18 [History] Ondansetron ODT [Zofran ODT] 4 mg SL Q4HR PRN #30 tab.rapdis 11/12/18 [Rx] Phenazopyridine HCl [Pyridium] 200 mg PO TIDAC PRN #42 tab 11/12/18 [Rx] Calcium Carbonate [Tums] 1,000 mg PO Q4H PRN tab.chew 11/23/18 [Rx] Fluconazole [Diflucan] 200 mg PO DAILY 7 Days tab 11/23/18 [Rx] Metoclopramide [Reglan] 10 mg PO QIDAC tablet 11/23/18 [Rx] Nitrofurantoin (BID) [Macrobid] 100 mg PO BIDWM 7 Days capsule 11/23/18 [Rx] Omeprazole [PriLOSEC] 40 mg PO DAILY capsule. 11/23/18 [Rx] Sucralfate [Carafate] 1 gm PO QIDAC udc 11/23/18 [Rx] Allergies/Adverse Reactions: Allergy/AdvReac Type Severity Reaction Status Date / Time penicillin G Allergy Redness of Verified 11/17/18 11:11 Skin ciprofloxacin AdvReac Vomiting Verified 11/19/18 08:24 codeine AdvReac Vomiting Verified 11/19/18 08:24 ibuprofen [From Motrin] AdvReac Vomiting Verified 11/19/18 08:24 oxycodone [From Percocet] AdvReac Vomiting Verified 11/19/18 08:24 Sulfa (Sulfonamide AdvReac Vomiting Verified 11/19/18 08:24 Antibiotics) sulfamethoxazole AdvReac Vomiting Verified 11/19/18 08:24 [From Septra] trimethoprim [From Septra] AdvReac Vomiting Verified 11/19/18 08:24 misc throat products Allergy See Uncoded 11/17/18 11:11 Comments - Respiratory Orders Smoking Cessation: Smoking cessation has been advised. For more information, call the [place] Tobacco Quit Line at 6-925-YYVM-NOW. - Ancillary Orders May use pressure relief devices daily prn - Advance Directives Living Will: No Power of Digital Marketing Strategist for Health Care: No Code Status: Full Code - Mobility Orders Ambulate - Rehabiliation Orders Rehab Potential: Fair Rehab Orders: Evaluation for Physical Therapy, Evaluation for Occupational Therapy, Evaluation for Speech Therapy (nausea, gag reflex) - Treatments List/Other: Take the nausea medications as directed before attempting to eat meals. Take Carafate as directed. Take Omeprazole in the morning on an empty stomach. Take they antibiotics as directed. Do Not stop antibiotics without talking to your provider. - Diet Orders Regular (advance as tolerated), Mechanical Soft House Supplement per Dietary: Ensure or Boost TID CERTIFICATION: I certify that the transfer of the above named patient to an Extended Care Facility is necessary for the continuing treatment of the diagnosis listed. The above information is true and accurate reflection of patient's current condition. Confidential - Redisclosure prohibited without a patient's written consent.
[2018-11-23 11:39] VITALS: BP 150/71
[2018-11-23] MEDS ORDERED: Ketorolac 15 MG/ML VIAL IVP ONE (13:37)
[2018-11-23] MEDS ORDERED: *HR* Metformin 500 MG TABLET PO SCH (17:00)
[2018-11-24] MEDS ORDERED: Aspirin 325 MG TABLET PO SCH (09:00)
== END 2018-11-23 15:24 | DRG 689 ==
LOC: 3BNU → 2ANU 11-17 02:19
PROVIDERS: ADMIT Surgery; ATTEND Surgery